=== PATIENT | male | born 1965 | race Caucasian/White ===

== ENCOUNTER 2017-09-02 19:37 | Emergency (ER) | payer MEDICAID, SELFPAY ==
[2017-09-02 19:42] VITALS: BP 170/103; PULSE 101; RESP 18; TEMP 36.6; O2SAT 98; BMI 21.2
--- NOTE | 2017-09-02 19:53 | CT_ITS ---
CT abdomen pelvis wo con CLINICAL INDICATION: Right flank pain with nausea ORDERING PHYSICIAN: Ole Hughes MD PATIENT AGE: 52 years COMPARISON: None TECHNIQUE: Axial images obtained with sagittal and coronal reformats. PROCEDURE: Oral Contrast: None IV Contrast: None . FINDINGS: Lung bases are clear.. No focal liver lesion. The gallbladder is distended with multiple gallstones. The gallbladder measures 9.7 x 4 cm. There are 2 small calcific densities at the distal aspect of the sphincter of Oddi possibly entering the lumen of the descending duodenum consistent with choledocholithiasis. This may be confirmed with MRI if clinically warranted. No obvious ductal dilatation. Stomach is somewhat distended with food and/or secretions area spleen, adrenal glands, and pancreas are unremarkable. No obstructing renal or ureteral calculi. No intestinal obstruction or free air. No evidence of appendicitis or diverticulitis. No pelvic mass or abnormal fluid collection. No urinary bladder stones. No acute bony anomalies. IMPRESSION: 1. Cholelithiasis. 2. Suspected choledocholithiasis. 3. Gastric distention
[2017-09-02 20:09] LABS: Basophils % 0.4 % (0.1-2.0); Eosinophils # 0.1 K/mm3 (0.0-0.4); Eosinophils % 0.5 % (0.1-12.0); Hematocrit 49.2 % (42.0-52.0); Hemoglobin 16.2 g/dL (14.1-18.0); Lymphocytes # 1.2 K/mm3 (0.7-4.5); Lymphocytes % 11.6 K/mm3 (10-50); Mean Corpuscular Volume 91.1 fl (80-94); Mean Platelet Volume 9.6 fl (7.4-10.4); Monocytes # 0.4 K/mm3 (0.1-1.0); Monocytes % 4.3 % (1.7-9.3); Neutrophils # 8.5 K/mm3 (1.8-7.8); Neutrophils % 83.2 % (37.0-80.0); Platelet Count 161 K/mm3 (142-424); Red Cell Distribution Width 12.9 % (11.5-17.5); White Blood Count 10.2 K/mm3 (4.8-10.8)
[2017-09-02 20:39] VITALS: BP 158/84; PULSE 63; RESP 18; TEMP 36.6; O2SAT 98
[2017-09-02 20:40] LABS: Microscopic, Urine URINE MICROSCOPIC (MICROSCOPIC)
[2017-09-02 20:42] LABS: Appearance,Urine CLEAR (Clear); Blood, Urine Negative (Negative); Color,Urine YELLOW (Yellow); Glucose,Urine (UA) Negative (Negative); Ketones,Urine Negative (Negative); Leukocyte Esterase,Urine Negative (Negative); Nitrate,Urine Negative (Negative); Protein,Urine TRACE (Negative); Specific Gravity, Urine >= 1.030 (1.005-1.030)
[2017-09-02 20:47] LABS: Alanine Aminotransferase 159 U/L (12-78); Albumin Level 3.9 gm/dL (3.4-5.0); Anion Gap 12.9 mEq/L (5-15); Aspartate Amino Transferase 191 U/L (15-37); Bilirubin,Total 1.6 mg/dL (0.2-1.0); Blood Urea Nitrogen 14 mg/dL (7-18); Calcium 9.3 mg/dL (8.5-10.1); Carbon Dioxide 29 mmol/L (21.0-32.0); Chloride 102 mmol/L (98-107); Creatinine Clearance Estimated 78 mL/min (0-300); Creatinine,Serum 1.24 mg/dL (0.70-1.30); Estimated Glomerular Filt Rate 61 ml/min (>60); GFR (African American) 74 ML/MIN (>60); Globulin 4.1 gm/dl (1.3-3.2); Glucose 136 mg/dL (74-106); Potassium 3.9 mmoL/L (3.5-5.1); Sodium 140 mmol/L (136-145)
[2017-09-02 20:48] LABS: Alkaline Phosphatase 130 U/L (46-116); Amylase 276 U/L (25-125); Lipase 218 u/L (73-393)
[2017-09-02 20:56] LABS: Bilirubin,Urine 2+ (Negative)
--- NOTE | 2017-09-02 21:29 | HMH.EDGENADL ---
ED Disposition Clinical Impression: Cholelithiasis Qualifiers: Cholelithiasis location: gallbladder and bile duct Cholecystitis presence: without cholecystitis Biliary obstruction: without biliary obstruction Qualified Code(s): K80.70 - Calculus of gallbladder and bile duct without cholecystitis without obstruction Disposition: Home, Self-Care Condition on Discharge: Good Instructions: DI for Gallstones Additional Instructions: fluids and see dr ding tuesday am after blood draw Prescriptions: Ondansetron HCl [Zofran 4mg Tab] 4 mg PO QID #20 tab - Critical Care Critical Care Time: No Attestation: On 09/02/17, the high probability of a clinically significant, sudden or life threatening deterioration of the following system(s) required my full and direct attention, intervention and personal management. The time I documented below is in addition to time spent performing reported procedures but includes the following listed in this critical care notation. Medical Decision Making - Medical Records Medical records reviewed: Yes: I reviewed the patient's medical records. Vital Signs: 09/02/17 19:42 09/02/17 20:39 Temperature 97.9 F 97.9 F Temperature Source Oral Oral Pulse Rate [Right Radial] 101 H 63 Respiratory Rate 18 18 Blood Pressure [Right Arm] 170/103 158/84 Blood Pressure Mean [Right Arm] 125 108 Blood Pressure Source [Right Arm] Automatic Cuff Automatic Cuff Blood Pressure Position [Right Arm] Sitting Sitting 02 Sat by Pulse Oximetry 98 98 Oxygen Delivery Method Room Air Room Air - Lab Data Lab results reviewed: Yes: I reviewed the patient's lab results. Lab Results 09/02/17 20:00: WBC 10.2, RBC 5.40, Hgb 16.2, Hct 49.2, MCV 91.1, MCH 30.0, MCHC 33.0, RDW 12.9, Plt Count 161, MPV 9.6, Neut % (Auto) 83.2 H, Lymph % (Auto) 11.6, [place] % (Auto) 4.3, Eos % (Auto) 0.5, Baso % (Auto) 0.4, Neut # (Auto) 8.5 H, Lymph # (Auto) 1.2, [place] # (Auto) 0.4, Eos # (Auto) 0.1, Baso # (Auto) 0.0 09/02/17 20:00: Sodium 140, Potassium 3.9, Chloride 102, Carbon Dioxide 29, Anion Gap 12.9, BUN 14, Creatinine 1.24, Estimated Creat Clear 78, Estimated GFR 61, Est GFR ( Amer) 74, Glucose 136 H, Calcium 9.3, Total Bilirubin 1.6 H, AST 191 H, ALT 159 H, Alkaline Phosphatase 130 H, Total Protein 8.0, Albumin 3.9, Globulin 4.1 H, Albumin/Globulin Ratio 1.0 L, Amylase 276 H, Lipase 218 09/02/17 20:25: Urine Color Yellow, Urine Appearance Clear, Urine pH 6.0, Ur Specific [place] >= 1.030, Urine Protein Trace, Urine Glucose (UA) Negative, Urine Ketones Negative, Urine Blood Negative, Urine Nitrate Negative, Urine Bilirubin 2+ A, Urine Urobilinogen 2.0, Ur Leukocyte Esterase Negative Result diagrams: 09/02/17 20:00 09/02/17 20:00 Orders (Tests/Meds): ED MEDICATIONS Discontinued Medications Generic Name Dose Route Start Last Admin Trade Name Freq PRN Reason Stop Dose Admin Sodium Chloride 500 mls @ 999 mls/hr 09/02/17 20:00 09/02/17 20:05 Sod Chlor 0.9% 1000ml Bag IV 09/02/17 20:30 999 mls/hr .Q31M BRITNEY Administration Ketorolac Tromethamine 30 mg 09/02/17 19:58 09/02/17 20:04 Toradol 30mg/Ml Vial IV 09/02/17 19:59 30 mg ONCE ONE Administration Ondansetron HCl 4 mg 09/02/17 19:59 09/02/17 20:04 Zofran 4mg/2ml Vial IV 09/02/17 20:00 4 mg ONCE ONE Administration ORDERS Category Date Time Status CT abdomen pelvis wo con Stat Cat Scan 09/02/17 19:53 Taken Urinalysis and Microscopic Stat Lab 09/02/17 20:25 Results - CT Data CT Scan: Abdomen, Pelvis Time Received: 21:[address] Reviewed: Yes: I have viewed the radiologist's interpretation Preliminary Findings: Abnormal (see report) - Physician Consults Physician Consulted: toña Reason -: Pt condition - Isaiah Inquiry Pt receiving controlled substance: No General Adult HPI - General Chief complaint: PAIN Stated complaint: pain in right side Time Seen by Provider: 09/02/17 20:30 Mode of Arrival: Ambulatory
[2017-09-02 21:31] LABS: Bacteria,Urine Trace /lpf; Mucus,Urine 2+ /lpf; RBC,Urine Occasional #/hpf (0-3); Squamous Epithelial Cell,Urine Occasional #/hpf (0-5); Uric Acid Crystals,Urine 3+ /lpf; WBC,Urine Occasional #/hpf (0-3)
--- NOTE | 2017-09-02 21:33 | PC.NURSE ---
dr wheeler paged per dr thomas request.
--- NOTE | 2017-09-02 21:36 | ED_ITS ---
ED Disposition Clinical Impression: Cholelithiasis Qualifiers: Cholelithiasis location: gallbladder and bile duct Cholecystitis presence: without cholecystitis Biliary obstruction: without biliary obstruction Qualified Code(s): K80.70 - Calculus of gallbladder and bile duct without cholecystitis without obstruction Disposition: Home, Self-Care Condition on Discharge: Good Instructions: DI for Gallstones Additional Instructions: fluids and see dr ding tuesday am after blood draw Prescriptions: Ondansetron HCl [Zofran 4mg Tab] 4 mg PO QID #20 tab - Critical Care Critical Care Time: No Attestation: On 09/02/17, the high probability of a clinically significant, sudden or life threatening deterioration of the following system(s) required my full and direct attention, intervention and personal management. The time I documented below is in addition to time spent performing reported procedures but includes the following listed in this critical care notation. Medical Decision Making - Medical Records Medical records reviewed: Yes: I reviewed the patient's medical records. Vital Signs: 09/02/17 19:42 09/02/17 20:39 Temperature 97.9 F 97.9 F Temperature Source Oral Oral Pulse Rate [Right Radial] 101 H 63 Respiratory Rate 18 18 Blood Pressure [Right Arm] 170/103 158/84 Blood Pressure Mean [Right Arm] 125 108 Blood Pressure Source [Right Arm] Automatic Cuff Automatic Cuff Blood Pressure Position [Right Arm] Sitting Sitting 02 Sat by Pulse Oximetry 98 98 Oxygen Delivery Method Room Air Room Air - Lab Data Lab results reviewed: Yes: I reviewed the patient's lab results. Lab Results 09/02/17 20:00: WBC 10.2, RBC 5.40, Hgb 16.2, Hct 49.2, MCV 91.1, MCH 30.0, MCHC 33.0, RDW 12.9, Plt Count 161, MPV 9.6, Neut % (Auto) 83.2 H, Lymph % (Auto ) 11.6, [place] % (Auto) 4.3, Eos % (Auto) 0.5, Baso % (Auto) 0.4, Neut # (Auto) 8.5 H, Lymph # (Auto) 1.2, [place] # (Auto) 0.4, Eos # (Auto) 0.1, Baso # (Auto) 0.0 09/02/17 20:00: Sodium 140, Potassium 3.9, Chloride 102, Carbon Dioxide 29, Anion Gap 12.9, BUN 14, Creatinine 1.24, Estimated Creat Clear 78, Estimated GFR 61, Est GFR ( Amer) 74, Glucose 136 H, Calcium 9.3, Total Bilirubin 1.6 H, AST 191 H, ALT 159 H, Alkaline Phosphatase 130 H, Total Protein 8.0, Albumin 3.9, Globulin 4.1 H, Albumin/Globulin Ratio 1.0 L, Amylase 276 H, Lipase 218 09/02/17 20:25: Urine Color Yellow, Urine Appearance Clear, Urine pH 6.0, Ur Specific [place] >= 1.030, Urine Protein Trace, Urine Glucose (UA) Negative, Urine Ketones Negative, Urine Blood Negative, Urine Nitrate Negative, Urine Bilirubin 2+ A, Urine Urobilinogen 2.0, Ur Leukocyte Esterase Negative Result diagrams: 09/02/17 20:00 09/02/17 20:00 Orders (Tests/Meds): ED MEDICATIONS Discontinued Medications Generic Name Dose Route Start Last Admin Trade Name Freq PRN Reason Stop Dose Admin Sodium Chloride 500 mls @ 999 mls/hr 09/02/17 20:00 09/02/17 20:05 Sod Chlor 0.9% 1000ml Bag IV 09/02/17 20:30 999 mls/hr .Q31M BRITNEY Administration Ketorolac Tromethamine 30 mg 09/02/17 19:58 09/02/17 20:04 Toradol 30mg/Ml Vial IV 09/02/17 19:59 30 mg ONCE ONE Administration Ondansetron HCl 4 mg 09/02/17 19:59 09/02/17 20:04 Zofran 4mg/2ml Vial IV 09/02/17 20:00 4 mg ONCE ONE Administration ORDERS Category Date Time Status
--- NOTE | 2017-09-02 21:36 | PC.NURSE ---
dr thomas speaking with dr ding
[2017-09-02 21:47] VITALS: PULSE 140; RESP 22; TEMP 37.9; O2SAT 99
[2017-09-02 22:14] VITALS: BP 150/82; PULSE 65; RESP 18; TEMP 36.7; O2SAT 99
== END 2017-09-02 22:14 | disposition home or self-care (01) ==
PROVIDERS: Emergency Provider General Practice
DX: K80.70 Calculus of gallbladder and bile duct without cholecystitis without obstruction (principal)
CPT/HCPCS: 74176; 80053; 81001; 82150; 83690; 85025; 96365; 96374; 96375; 99283; J2405

== ENCOUNTER → 2017-09-05 08:05 | Outpatient (CLI) | payer MEDICAID, SELFPAY ==
[2017-09-05 08:22] LABS: Basophils % 0.5 % (0.1-2.0); Eosinophils # 0.3 K/mm3 (0.0-0.4); Eosinophils % 4.1 % (0.1-12.0); Hematocrit 49.9 % (42.0-52.0); Hemoglobin 15.9 g/dL (14.1-18.0); Lymphocytes # 1.6 K/mm3 (0.7-4.5); Lymphocytes % 22.4 K/mm3 (10-50); Mean Corpuscular HGB Conc 31.8 g/dL (31.8-35.4); Mean Corpuscular Hemoglobin 30.1 pg (27.0-31.2); Mean Corpuscular Volume 94.7 fl (80-94); Monocytes # 0.4 K/mm3 (0.1-1.0); Monocytes % 5.6 % (1.7-9.3); Neutrophils # 4.9 K/mm3 (1.8-7.8); Neutrophils % 67.4 % (37.0-80.0); Platelet Count 169 K/mm3 (142-424); Red Blood Count 5.26 M/mm3 (4.60-6.20); Red Cell Distribution Width 12.9 % (11.5-17.5); White Blood Count 7.2 K/mm3 (4.8-10.8)
[2017-09-05 09:31] LABS: Alanine Aminotransferase 135 U/L (12-78); Albumin Level 3.5 gm/dL (3.4-5.0); Alkaline Phosphatase 136 U/L (46-116); Amylase 268 U/L (25-125); Anion Gap 2.1 mEq/L (5-15); Aspartate Amino Transferase 55 U/L (15-37); Bilirubin,Total 0.8 mg/dL (0.2-1.0); Blood Urea Nitrogen 11 mg/dL (7-18); Carbon Dioxide 30 mmol/L (21.0-32.0); Chloride 103 mmol/L (98-107); Creatinine,Serum 1.31 mg/dL (0.70-1.30); Estimated Glomerular Filt Rate 57 ml/min (>60); GFR (African American) 70 ML/MIN (>60); Globulin 3.4 gm/dl (1.3-3.2); Glucose 112 mg/dL (74-106); Lipase 187 u/L (73-393); Potassium 4.1 mmoL/L (3.5-5.1); Sodium 131 mmol/L (136-145); Total Protein,Serum 6.9 gm/dL (6.4-8.2)
== END ==
PROVIDERS: PCP Emergency Medicine; Visit Provider Emergency Medicine
DX: K80.80 Other cholelithiasis without obstruction (principal)
CPT/HCPCS: 36415; 80053; 82150; 83690; 85025; 93005

== ENCOUNTER 2017-09-06 09:07 | Day surgery (SDC) | payer MEDICAID, SELFPAY ==
[2017-09-05 16:08] VITALS: BMI 21.2
[2017-09-06] VITALS (13 sets, daily range): BP systolic 130–157; BP diastolic 78–92; PULSE 62–78; RESP 16–20; TEMP 36.3–43; O2SAT 95–98
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
[2017-09-06 10:29] LABS: Alanine Aminotransferase 118 U/L (12-78); Albumin Level 3.6 gm/dL (3.4-5.0); Alkaline Phosphatase 120 U/L (46-116); Amylase 343 U/L (25-125); Bilirubin,Direct 0.2 mg/dL (0.0-0.2); Lipase 164 u/L (73-393); Total Protein,Serum 7.7 gm/dL (6.4-8.2)
[2017-09-06 10:31] LABS: Aspartate Amino Transferase 51 U/L (15-37)
--- NOTE | 2017-09-06 12:36 | FL_ITS ---
FL fluoroscopy <1hr CLINICAL INDICATION: Cholelithiasis distended gallbladder on preoperative exam ITS.REASON: CHOLANGIOGRAM ORDERING PHYSICIAN: Bal Melendez MD PATIENT AGE: 52 years Fluoroscopy time: 54 seconds COMPARISON: None FINDINGS: Selected images are obtained from the procedure showing contrast injected into the cystic duct. There is a fairly long cystic duct. No filling defects are evident indicate retained ductal stones. There is good flow of contrast into the duodenum. No strictures. IMPRESSION: No evidence of retained common duct stones
--- NOTE | 2017-09-06 13:05 | HMH.OPNOTE ---
Date of procedure: 09/06/17 Pre-op Diagnosis:: Chronic calculus cholecystitis Abnormal liver function tests Post-op Diagnosis:: Same Procedure performed:: Laparoscopic cholecystectomy with intraoperative cholangiogram Surgeon:: Bal Melendez MD Senior Engineering Team Leader(s):: Dominic Zavaleta IT INSTRUCTOR:: Kai Srinivasan Anesthesia: GETA Estimated blood loss (mL): 25 Operative findings:: Severe fat stranding around the entire gallbladder Flow into small bowel noted on intraoperative cholangiogram Operative note:: After informed consent was obtained, the patient was taken to the operating room and placed in the supine position. General anesthesia was induced and the abdomen was prepped and draped in a sterile fashion. After infiltration with local anesthetic an infraumbilical incision was made. A Veress needle was placed in position. The abdomen was insufflated. A 5 mm optical trocar was placed in position. Under direct visualization, a 12 mm trocar was placed in the subxiphoid position and 2 additional 5 mm trocars were placed in the right upper quadrant. Severe pericholecystic fat stranding noted. Dissection was very difficult as the gallbladder was carefully elevated up and over the liver margin and freed from surrounding adherent omentum. Combination of blunt dissection and harmonic hiren was utilized to remove the gallbladder from surrounding tissue. The tissue around the cystic duct was carefully dissected. A clip was placed at the infundibulum and a partial otomy was repleted on the duct. The cholangiogram catheter was entered through a separate right quadrant stab incision and placed in position. The catheter was secured with clip. Intraoperative cholangiogram revealed flow into the small bowel. 3 clips were placed proximally and the duct was transected with harmonic hiren. Harmonic hiren were then utilized to dissect the gallbladder away from the liver margin with careful attention to the control of the cystic artery. The gallbladder was placed in a retrieval bag and removed through the subxiphoid trocar site. The right upper quadrant was thoroughly irrigated. No active bleeding or bile leak was noted. Fascia at the subxiphoid trocar site was reapproximated utilizing 0 Ethibond after all trocars were removed. All wounds were irrigated and skin was closed with 4-0 Monocryl in a subcuticular fashion. Steri-Strips were applied. The patient's anesthetic agents were reversed and extubation was completed prior to transfer to recovery in stable condition. Condition: stable Disposition: PACU Specimens:: Gallbladder and contents Complications:: No immediate
--- NOTE | 2017-09-06 13:13 | P.PN_ITS ---
[facility] Anesthesia Record Part I Intake, IV Amount: 1,000 Estimated blood loss (mL): 10 Urine output (mL): 10 Blood Products used (#): none Blood Pressure: 155/83 SaO2: 98 Pulse Rate: 64 Respiratory Rate: 18 Temperature: 97.3 F Patient is:: Awake, Stable Stable to PACU at:: 13:11
--- NOTE | 2017-09-06 13:13 | HMH.ANESII ---
[facility] Anesthesia Record Part II Discharge Time: 13:41 Destination: Surgical Day Care (OP Surgery) PACU nurse assessment reviewed?: Yes Patient Condition:: Fair Anesthesia Complications:: None
--- NOTE | 2017-09-06 15:32 | PC.NURSE ---
1315-pt voided per urinal, 200ml's of clear yellow urine
--- NOTE | 2017-09-06 15:38 | PC.NURSE ---
1341-Pt eating ice chips w/out difficulty. Pt intermittently shivering, applied warm blankets for comfort.
--- NOTE | 2017-09-06 15:41 | PC.NURSE ---
1349-detailed report called to SADA Chiang 1352-Pt transported to post op via stretcher w/rails up and left in care of SADA Chiang w/bed locked in lowest position. VSS. Pt stable.
== END 2017-09-06 14:22 | disposition home or self-care (01) ==
LOC: OR 09:11
PROVIDERS: PCP Family Medicine; Visit Provider Surgery
PROC: (CPT 47605; principal; 2017-09-06 10:45)
DX: K80.10 Calculus of gallbladder with chronic cholecystitis without obstruction (principal); K82.8 Other specified diseases of gallbladder
CPT/HCPCS: 47605; 76000; 80076; 82150; 83690; 96374; J0131; J2405; J2710

== ENCOUNTER 2018-10-30 12:11 | Observation (INO) ==
[2018-10-30 12:37] LABS: Basophils % 0.4 % (0.1-2.0); Eosinophils % 0.1 % (0.1-12.0); Hematocrit 47.5 % (42.0-52.0); Hemoglobin 16.4 g/dL (14.1-18.0); Lymphocytes % 12.3 % (10-50); Mean Corpuscular HGB Conc 34.5 g/dL (31.8-35.4); Mean Corpuscular Hemoglobin 32.2 pg (27.0-31.2); Mean Corpuscular Volume 93.3 fl (80-94); Mean Platelet Volume 10.3 fl (7.4-10.4); Monocytes # 0.5 K/mm3 (0.1-1.0); Monocytes % 5.7 % (1.7-9.3); Neutrophils # 6.7 K/mm3 (1.8-7.8); Neutrophils % 81.5 % (37.0-80.0); Platelet Count 125 K/mm3 (142-424); Red Blood Count 5.09 M/mm3 (4.60-6.20); Red Cell Distribution Width 14.2 % (11.5-17.5); White Blood Count 8.2 K/mm3 (4.8-10.8)
[2018-10-30 12:45] LABS: Anion Gap 26.7 mEq/L (5-15); Calcium 8.9 mg/dL (8.5-10.1)
[2018-10-30 12:48] LABS: Potassium 2.7 mmoL/L (3.5-5.1)
--- NOTE | 2018-10-30 12:55 | Emergency Department Note ---
ED Disposition Clinical Impression: Syncopal episodes, Alcohol abuse, Hypokalemia, Fever, Microscopic hematuria Disposition: Admitted as Observation Condition on Discharge: Fair Referrals: Provider,MD Gilbert [Referring] - Time of Disposition: 17:12 - Critical Care Critical Care Time: No Attestation: On 10/30/18, the high probability of a clinically significant, sudden or life threatening deterioration of the following system(s) required my full and direct attention, intervention and personal management. The time I documented below is in addition to time spent performing reported procedures but includes the following listed in this critical care notation. Medical Decision Making - Medical Records Medical records reviewed: Yes: I reviewed the patient's medical records. - Isaiah Inquiry Pt receiving controlled substance: No Isaiah was queried for this patient: No Vital Signs: 10/30/18 12:17 10/30/18 12:53 10/30/18 14:04 Temperature 99.9 F H Temperature Source Oral Pulse Rate [Right] 89 92 H 72 Respiratory Rate 20 16 20 Blood Pressure [Right Arm] 93/49 L 110/67 144/77 H Blood Pressure Mean [Right Arm] 63 81 99 Blood Pressure Source [Right Arm] Automatic Cuff Automatic Cuff Automatic Cuff Blood Pressure Position [Right Arm] Sitting Sitting Sitting 02 Sat by Pulse Oximetry 92 L 94 L 98 Oxygen Delivery Method Nasal Cannula Room Air Nasal Cannula 10/30/18 14:53 10/30/18 15:00 10/30/18 15:49 Temperature 100.2 F H Temperature Source Oral Pulse Rate [Right] 71 72 69 Respiratory Rate 18 20 16 Blood Pressure [Right Arm] 147/89 H 132/81 150/74 H Blood Pressure Mean [Right Arm] 108 98 99 Blood Pressure Source [Right Arm] Automatic Cuff Automatic Cuff Automatic Cuff Blood Pressure Position [Right Arm] Sitting Sitting Sitting 02 Sat by Pulse Oximetry 97 95 97 Oxygen Delivery Method Room Air Room Air 10/30/18 16:18 10/30/18 16:53 10/30/18 17:07 Temperature 98.6 F 98.6 F Temperature Source Oral Oral Pulse Rate [Right] 74 79 77 Respiratory Rate 18 20 20 Blood Pressure [Right Arm] 170/86 H 132/82 127/82 Blood Pressure Mean [Right Arm] 114 98 97 Blood Pressure Source [Right Arm] Automatic Cuff Automatic Cuff Automatic Cuff Blood Pressure Position [Right Arm] Supine Sitting Sitting 02 Sat by Pulse Oximetry 97 94 L 20 L Oxygen Delivery Method Room Air Room Air - Lab Data Lab results reviewed: Yes: I reviewed the patient's lab results. Lab Results 10/30/18 12:25: WBC 8.2, RBC 5.09, Hgb 16.4, Hct 47.5, MCV 93.3, MCH 32.2 H, MCHC 34.5, RDW 14.2, Plt Count 125 L, MPV 10.3, Neut % (Auto) 81.5 H, Lymph % (Auto) 12.3, [place] % (Auto) 5.7, Eos % (Auto) 0.1, Baso % (Auto) 0.4, Neut # (Auto) 6.7, Lymph # (Auto) 1.0, [place] # (Auto) 0.5, Eos # (Auto) 0.0, Baso # (Auto) 0.0 10/30/18 12:25: Sodium 135 L, Potassium 2.7 L*, Chloride 94 L, Carbon Dioxide 17 L, Anion Gap 26.7 H, BUN 17, Creatinine 2.07 H, Estimated Creat Clear 48, Estimated GFR 34 L, Est GFR ( Amer) 41 L, Glucose 124 H, Calcium 8.9 10/30/18 12:25: Magnesium 1.8 10/30/18 12:25: Troponin I < 0.02, Plasma/Serum Alcohol 0 10/30/18 12:30: Lactate 3.0 H 10/30/18 12:30: Influenza Type A Ag Negative, Influenza Type B Ag Negative 10/30/18 15:50: Urine Color Yellow, Urine Appearance Clear, Urine pH 6.5, Ur Specific [place] >= 1.030, Urine Protein 2+, Urine Glucose (UA) Negative, Urine Ketones 1+, Urine Blood 1+, Urine Nitrate Negative, Urine Bilirubin 2+ A, Urine Urobilinogen 0.2, Ur Leukocyte Esterase Negative, Urine RBC 20-50, Urine WBC Occasional, Amorphous Sediment 1+, Urine Bacteria 1+ 10/30/18 15:50: Urine Opiates Screen Negative, Urine Methadone Screen Negative, Ur Barbituates Screen Negative, Ur Phencyclidine Scrn Negative, Ur Amphetamines Screen Negative, U Benzodiazepines Scrn Positive H, Urine Cocaine Screen Negative, U Marijuana (THC) Screen Negative Result diagrams: 10/30/18 12:25 10/30/18 12:25 Orders (Tests/Meds): ED MEDICATIONS Discontinued Medications Generic Name Dose Route Start Last Admin Trade Name Sivan PRN Reason Stop Dose Admin Acetaminophen 650 mg 10/30/18 15:11 10/30/18 15:14 Acetaminophen 325mg Tab PO 10/30/18 15:12 650 mg ONCE ONE Administration Potassium Chloride/Water 100 mls @ 50 mls/hr 10/30/18 13:11 10/30/18 13:36 Potassium Chloride 20meq/100ml Ivpb IV 10/30/18 15:10 50 mls/hr ONCE ONE Administration Ceftriaxone Sodium 1 gm/ 50 mls @ 100 mls/hr 10/30/18 16:45 10/30/18 16:51 Sodium Chloride IV 10/30/18 17:14 100 mls/hr Q24H ONE Administration Protocol Lorazepam 2 mg 10/30/18 15:20 10/30/18 15:46 Ativan 2mg/Ml Vial IV 10/30/18 15:21 2 mg ONCE ONE Administration Potassium Chloride 20 meq 10/30/18 13:12 10/30/18 13:36 Klor-Con 20meq Tablet PO 10/30/18 13:13 20 meq ONCE ONE Administration ORDERS Category Date Time Status Lactic Acid Follow Up (RFLX 1) Stat Lab 10/30/18 17:02 Received Blood Culture Stat Micro 10/30/18 12:30 Received Urine Culture Stat Micro 10/30/18 15:50 Received ECG Request by /Anshu Stat Y 10/30/18 12:29 Ordered Dizzy HPI - General Chief Complaint: Altered Mental Status Stated Complaint: syncope Time Seen by Provider: 10/30/18 13:13 Mode of Arrival: EMS Source of Information: Patient Limitations: No Limitations Description of Symptoms (Recalled from ER Triage Doc. by RN): [facility] his [facility] when he had what was reported by penitentiary staff as a syncopal episode. penitentiary staff reports to EMS that he may have been exhibiting postictal bahavior after syncopal episode but that no seizure activity was directly observed. Thay also report that pt may have st umbled during previous visits to facility. Pt axox4. strok scale negative. - History of Present Illness HPI Narrative: Brother confides that patient is a heavy drinker, daily though patient denies it. - Related Data Previous Rx's Medication Instructions Recorded Ondansetron HCl [Zofran 4mg Tab] 4 mg PO QID #20 tab 09/02/17 Allergies Allergy/AdvReac Type Severity Reaction Status Date / Time No Known Allergies Allergy Verified 09/20/17 13:35 [facility] History - Hepatitis A Screen Drug use history?: No High risk sexual behaviors?: No History of sexually transmitted infection?: No Currently employed?: No Childcare worker?: No Do you have indoor plumbing?: Yes Do you have electricity?: Yes Attestation statement:: This patient has been screened for Hepatitis A risk factors. I have reviewed the patient's past medical history: Yes Medical History: Denies:: Cancer, Diabetes Mellitus Type 1, Diabetes Mellitus Type 2, Internal Pacemaker, MRSA, Seizures Other Medical History: Denies: Blood Transfusion Reaction Other Surgeries: Yes: No Previous Surgery, Other. No: Pacemaker Amputation: No Fractures: No - Social History Educational Level: Completed High School Smoking Status: Never smoker Alcohol Intake: never Alcohol Intake Frequency:: holidays/special occasions only Occupational Status: unemployed Housing: house Household Members: family - Psychiatric History Expresses thoughts of harming self/others: None Suicide Plan Description: No Plan Family Hx:: Hyperlipidemia, Hypertension, Stroke ROS Obtained: Yes All systems reviewed & no additional complaints - Constitutional Constitutional: Denies chills, Denies fever(s), Denies headache(s) - Eyes Eyes: Reports change in vision - Cardiovascular Cardiovascular: Reports system reviewed and no additional complaints, except as docu, Denies chest pain, Denies chest pain at rest, Denies diaphoresis, Denies dyspnea - Respiratory Respiratory: No chest congestion, No cough, No dyspnea, No coughing up blood - Gastrointestinal Gastrointestingal: Denies: abdominal pain, diarrhea, nausea, vomiting - Musculoskeletal Musculoskeletal: Denies back pain, Denies muscle cramps, Reports muscle w eakness, Denies neck pain - Integumentary/Breasts Skin/Breast: Denies rash, Denies skin pain - Neurologic Neurologic: Reports syncope, Reports other (preceded by vision changes) - Hematologic/Lymphatic Henatologic/Lymphatic: Denies easy bleeding, Denies easy bruising - Allergic/Immunologic Allergic/Immunologic: Reports system reviewed and no additional complaints, except as docu Physical Exam - General General appearance: alert, in no apparent distress - Head Head exam: atraumatic, normocephalic, normal inspection - Eye Eye exam: Present: normal appearance, PERRL, EOMI - ENT ENT exam: Present: normal exam, normal oropharynx, mucous membranes moist, TM's normal bilaterally, normal external ear exam - Neck Neck exam: Present: normal inspection, full ROM, trachea midline. Absent: meningismus, lymphadenopathy - Chest Chest inspection: Present: normal inspection, symmetric chest wall rise. Absent: tenderness - Respiratory Respiratory exam: Present: normal lung sounds bilaterally - Cardiovascular Cardiovascular exam: Present: regular rate, normal rhythm. Absent: JVD - Abdominal Exam Abdominal exam: Present: soft, normal bowel sounds. Absent: distention, tenderness, guarding - Extremities Exam Extremities exam: Present: normal inspection, full ROM, normal capillary refill. Absent: calf tenderness - Neurological Exam Neurological exam: Present: alert, oriented X3 - Psychiatric Psychiatric exam: Present: other (odd affect, ? lifelong ETOH) - Skin Skin exam: Present: warm - Lymphatic Lymphatic Findings: no adenopathy
[2018-10-30 15:58] LABS: Microscopic, Urine URINE MICROSCOPIC (MICROSCOPIC)
[2018-10-30 15:59] LABS: Appearance,Urine CLEAR (Clear); Blood, Urine 1+ (Negative); Color,Urine YELLOW (Yellow); Glucose,Urine (UA) Negative (Negative); Ketones,Urine 1+ (Negative); Leukocyte Esterase,Urine Negative (Negative); PH,Urine 6.5 (5.0-8.5); Protein,Urine 2+ (Negative); Specific Gravity, Urine >= 1.030 (1.005-1.030); Urobilinogen,Urine 0.2 EU/dl (0.2)
[2018-10-30 16:13] LABS: Bilirubin,Urine 2+ (Negative)
[2018-10-30 16:17] LABS: Amorphous Sediment,Urine 1+ /lpf; Bacteria,Urine 1+ /lpf; RBC,Urine 20-50 #/hpf (0-3); WBC,Urine Occasional #/hpf (0-3)
[2018-10-30 16:55] LABS: Ethyl Alcohol 0 mg/dL (0-99)
[2018-10-30 17:00] LABS: Amphetamine/Metha Screen,Urine Negative ng/mL (<1000); Barbiturates Screen,Urine Negative ng/mL (<200); Benzodiazepines Screen,Urine Positive ng/mL (<200); Cannabinoid Screen,Urine Negative ng/mL (<50); Cocaine Screen,Urine Negative ng/mL (<300); Methadone Screen,Urine Negative ng/mL (<300); Opiate Screen,Urine Negative ng/mL (<300); Phencyclidine Screen,Urine Negative ng/mL (<25)
--- NOTE | 2018-10-30 18:14 | History & Physical Report ---
*Admission Date: 10/30/18 *Chief complaint: Syncope/hypokalemia *History of present illness: 53-year-old white male with history of recurrent alcoholism and cholecystectomy who presented to the hospital by EMS after having a syncopal episode that was witnessed by nurses at a local alf. He was visiting his father who has been a resident of this alf over the past week or so because of functional decline issues. Patient reports that he had a sensation of fuzzy vision and that he was watching television with his father but when he would look away from the television he could still see the television even on a wall where there was no television mounted. He then does not remember fainting but remembers the nurses standing over him. The nurses reported that he had some tonic-clonic jerking during the very brief episode of syncope. Brought to the emergency department where he was found to have low potassium, no other significant lab abnormalities. CT of head was questionable for ischemic area, no evidence of hemorrhage. Admitted to floor. Patient has a long history of alcoholism that was reported to the ER doctor by his brother. Patient denied alcohol use to the ER doctor. [facility] History I have reviewed the patient's past medical history: Yes Medical History: Reports:: Gall Bladder Disease Denies:: Cancer, Diabetes Mellitus Type 1, Diabetes Mellitus Type 2, Internal Pacemaker, MRSA, Seizures *Have you ever received a pneumonia vaccine?: No *Have you received a flu vaccine this season?: No Other Medical History: Denies: Blood Transfusion Reaction Other Surgeries: Yes: Cholecystectomy, Other. No: Pacemaker Amputation: No Fractures: No - *Social History Educational Level: Completed High School Smoking Status: Never smoker Alcohol Intake: never Alcohol Intake Frequency:: holidays/special occasions only (Brother reports a history of heavy alcohol use) *Occupational Status:: unemployed Housing: house Household Members: family *Travel in the last 8 weeks: None - Psychiatric History Expresses thoughts of harming self/others: None Suicide Plan Description: No Plan Family Hx:: Hyperlipidemia, Hypertension, Stroke Review of Systems - Review of Systems Review of systems:: pertinent systems reviewed and negative unless documented below Patient reports that he is hungry. Reports feeling weak but denies any specific pains. Denies cardiac palpitations, recent chest pain or other episodes of syncope. Denies postictal confusion. Denies history of seizures. Denies abdominal pain, reports that he had diarrhea yesterday, denies vomiting, but reports recent chest congestion and some retching of mucus. - *Neurologic Reports fainting, Reports other (preceded by vision changes), Denies headache(s) Meds Home Medications Medication Instructions Recorded Confirmed Type Ondansetron HCl [Zofran 4mg Tab] 4 mg PO QID #20 tab 09/02/17 09/06/17 Rx Allergies Allergy/AdvReac Type Severity Reaction Status Date / Time No Known Allergies Allergy Verified 09/20/17 13:35 Exam Vital signs and Labs for Last 24 Hours: Temp Pulse Resp BP Pulse Ox 98.5 F 74 20 116/73 20 L 10/30/18 17:45 10/30/18 17:45 10/30/18 17:45 10/30/18 17:45 10/30/18 17:07 Laboratory Results - last 24 hr 10/30/18 12:25: WBC 8.2, RBC 5.09, Hgb 16.4, Hct 47.5, MCV 93.3, MCH 32.2 H, MCHC 34.5, RDW 14.2, Plt Count 125 L, MPV 10.3, Neut % (Auto) 81.5 H, Lymph % (Auto) 12.3, [place] % (Auto) 5.7, Eos % (Auto) 0.1, Baso % (Auto) 0.4, Neut # (Auto) 6.7, Lymph # (Auto) 1.0, [place] # (Auto) 0.5, Eos # (Auto) 0.0, Baso # (Auto) 0.0 10/30/18 12:25: Sodium 135 L, Potassium 2.7 L*, Chloride 94 L, Carbon Dioxide 17 L, Anion Gap 26.7 H, BUN 17, Creatinine 2.07 H, Estimated Creat Clear 48, Estimated GFR 34 L, Est GFR ( Amer) 41 L, Glucose 124 H, Calcium 8.9 10/30/18 12:25: Magnesium 1.8 10/30/18 12:25: Troponin I < 0.02, Plasma/Serum Alcohol 0 10/30/18 12:30: Lactate 3.0 H 10/30/18 12:30: Influenza Type A Ag Negative, Influenza Type B Ag Negative 10/30/18 15:50: Urine Color Yellow, Urine Appearance Clear, Urine pH 6.5, Ur Specific [place] >= 1.030, Urine Protein 2+, Urine Glucose (UA) Negative, Urine Ketones 1+, Urine Blood 1+, Urine Nitrate Negative, Urine Bilirubin 2+ A, Urine Urobilinogen 0.2, Ur Leukocyte Esterase Negative, Urine RBC 20-50, Urine WBC Occasional, Amorphous Sediment 1+, Urine Bacteria 1+ 10/30/18 15:50: Urine Opiates Screen Negative, Urine Methadone Screen Negative, Ur Barbituates Screen Negative, Ur Phencyclidine Scrn Negative, Ur Amphetamines Screen Negative, U Benzodiazepines Scrn Positive H, Urine Cocaine Screen Negative, U Marijuana (THC) Screen Negative 10/30/18 17:02: Lactate 1.5 I & O for Last 24 hours: Intake & Output 10/28/18 10/29/18 10/30/18 10/31/18 11:59 11:59 11:59 11:59 Weight 180 lb Narrative: Patient is thin, appears older than his stated age. Has a skin grafting scar on the right neck. Oropharynx dry but clear. Cranial nerves are otherwise intact. Anterior lung buckner are clear, heart rate regular. Abdomen soft and benign. Able to move all extremities well, extremities are pale but well-perfused and warm. No stigmata of liver disease. Assessment and Plan (1) Alcohol abuse Current visit: Yes Status: Acute Category: Medical Code(s): F10.10 - Alcohol abuse, uncomplicated I discussed the possibility of alcohol withdrawal seizures with patient, he admits to me that before his father was hospitalized 2 weeks ago he did occasionally drink but that it was "rare." Alcohol level is 0. Seizure precautions. Ativan ordered for recurrent seizures, possible alcohol withdrawal issues. (2) Hypokalemia Start date: Current visit: Yes Status: Acute Category: Medical Code(s): E87.6 - Hypok alemia Patient is able to take p.o. No need for further runs of IV potassium. P.o. replacement and normal saline with potassium and IV fluids. Check labs tomorrow (3) Microscopic hematuria Current visit: Yes Status: Acute Category: Medical Code(s): R31.29 - Other microscopic hematuria Urine culture pending, IV antibiotics on board (4) Syncopal episodes Current visit: Yes Status: Acute Category: Medical Code(s): R55 - Syncope and collapse Wide diagnostic possibility. Patient needs MRI because of abnormal CT scan. EEG. Seizure precautions.
[2018-10-31 07:37] LABS: Basophils % 0.5 % (0.1-2.0); Eosinophils % 0.2 % (0.1-12.0); Hematocrit 43.2 % (42.0-52.0); Lymphocytes # 1.2 K/mm3 (0.7-4.5); Lymphocytes % 14.9 % (10-50); Mean Corpuscular HGB Conc 33.7 g/dL (31.8-35.4); Mean Corpuscular Hemoglobin 31.4 pg (27.0-31.2); Mean Platelet Volume 10.5 fl (7.4-10.4); Monocytes # 0.6 K/mm3 (0.1-1.0); Monocytes % 7.2 % (1.7-9.3); Neutrophils # 6.2 K/mm3 (1.8-7.8); Neutrophils % 77.2 % (37.0-80.0); Platelet Count 93 K/mm3 (142-424); Red Blood Count 4.65 M/mm3 (4.60-6.20); Red Cell Distribution Width 14.4 % (11.5-17.5)
--- NOTE | 2018-10-31 07:48 | Pharmacy Consult Notes ---
[facility] Pharmacy VTE Monitoring - Patient Demographics Admission date: 10/30/18 Report Date: 10/31/18 Time: 07:48 Allergies/Adverse Reactions: Patient Allergies No Known Allergies Allergy (Verified 09/20/17 13:35) Height: 1.91 m Weight: 83.036 kg Patient Problems: Current Active Problems (Updated 10/30/18 @ 17:12 by Bro Palmer MD) Syncopal episodes (Acute) Alcohol abuse (Acute) Hypokalemia (Acute) Fever (Acute) Microscopic hematuria (Acute) - VTE Risk Labs: VTE Related Lab Results Hgb 16.4 g/dL (14.1-18.0) 10/30/18 12:25 Hct 43.2 % (42.0-52.0) 10/31/18 07:13 Plt Count 93 K/mm3 (142-424) L D 10/31/18 07:13 BUN 17 mg/dL (7-18) 10/30/18 12:25 Creatinine 2.07 mg/dL (0.70-1.30) H 10/30/18 12:25 Estimated Creat Clear 48 mL/min (50-200) 10/30/18 12:25 Was VTE Risk Assessment Performed: Yes VTE Score: 2 VTE Risk Level: Very Low Risk - Prophylaxis VTE Prophylaxis Ordered?: Yes Types of VTE Prophylaxis: TEDS Knee High Location of Applied Device: Bilateral Lower Extremeties - VTE Diagnosis Confirmed Treatment or plan recommended: Continue Current Treatment
[2018-10-31 07:49] LABS: Albumin Level 3.4 gm/dL (3.4-5.0); Albumin/Globulin Ratio 0.9 (1.1-1.8); Anion Gap 15.4 mEq/L (5-15); Bilirubin,Total 0.9 mg/dL (0.2-1.0); Calcium 8.4 mg/dL (8.5-10.1); Globulin 3.9 gm/dl (1.3-3.2); Potassium 3.4 mmoL/L (3.5-5.1); Total Protein,Serum 7.3 gm/dL (6.4-8.2)
[2018-10-31 08:03] LABS: Hemoglobin 14.6 g/dL (14.1-18.0)
[2018-10-31 08:42] VITALS: BP 123/71
--- NOTE | 2018-10-31 08:43 | Discharge Summary ---
General - General Admission date:: 10/30/18 Discharge date: 10/31/18 HPI HPI: 53-year-old white male with history of recurrent alcoholism and cholecystectomy who presented to the hospital by EMS after having a syncopal episode that was witnessed by nurses [facility] a local [facility]. He was visiting his father who has been a resident of this prison over the past week or so because of functional decline issues. Patient reports that he had a sensation of fuzzy vision and that he was watching television with his father but when he would look away from the television he could still see the television even on a wall where there was no television mounted. He then does not remember fainting but remembers the nurses standing over him. The nurses reported that he had some tonic-clonic jerking during the very brief episode of syncope. Brought to the emergency department where he was found to have low potassium, no other significant lab abnormalities. CT of head was questionable for ischemic area, no evidence of hemorrhage. Admitted to floor. Patient has a long history of alcoholism that was reported to the ER doctor by his brother. Patient denied alcohol use to the ER doctor. Hospital Course Hospital Course: Admitted for seizure precautions. Given Ativan as needed due to tremor and agitation. No further episodes during hospitalization. Did have CT of his head with possible gliotic change however no focalizing or lateralizing deficits. Decided not to pursue MRI as he had no other indication on exam of stroke. Suspect syncopal episode is either from stress taking care of father or due to his lack of alcohol intake. Pt tolerating PO intake, hemodynamically stable, without further seizure activity. Hypokalemia resolved. No concern for UTI. Medically stable for discharge home Objective Vital signs: Temp Pulse Resp BP Pulse Ox 99.5 F 73 16 142/90 H 95 10/31/18 04:00 10/31/18 04:00 10/31/18 04:00 10/31/18 04:00 10/31/18 04:00 Narrative: Patient is thin, appears older than his stated age. Has a skin grafting scar on the right neck. Oropharynx dry but clear. Cranial nerves are otherwise intact. Anterior lung buckner are clear, heart rate regular. Abdomen soft and benign. Able to move all extremities well, extremities are pale but well-perfused and warm. No lateralizing deficits or focal weakness, no facial asymmetry No stigmata of liver disease, spider angioma, asterixis. Results Labs on day of discharge: Labs from last 24 hours 10/31/18 10/31/18 10/30/18 07:13 07:13 23:28 WBC 8.0 RBC 4.65 Hgb 14.6 D Hct 43.2 MCV 93.0 MCH 31.4 H MCHC 33.7 RDW 14.4 Plt Count 93 L D MPV 10.5 H Neut % (Auto) 77.2 Lymph % (Auto) 14.9 [place] % (Auto) 7.2 Eos % (Auto) 0.2 Baso % (Auto) 0.5 Neut # (Auto) 6.2 Lymph # (Auto) 1.2 [place] # (Auto) 0.6 Eos # (Auto) 0.0 Baso # (Auto) 0.0 Sodium 138 Potassium 3.4 L D Chloride 100 Carbon Dioxide 26 D Anion Gap 15.4 H BUN 16 Creatinine 1.18 D Estimated Creat Clear 85 Estimated GFR 65 Est GFR ( Amer) 78 D Glucose 86 D Lactate Calcium 8.4 L Magnesium Total Bilirubin 0.9 AST 66 H ALT 90 H Alkaline Phosphatase 79 Troponin I < 0.02 Total Protein 7.3 Albumin 3.4 Globulin 3.9 H Albumin/Globulin Ratio 0.9 L Urine Color Urine Appearance Urine pH Ur Specific [place] Urine Protein Urine Glucose (UA) Urine Ketones Urine Blood Urine Nitrate Urine Bilirubin Urine Urobilinogen Ur Leukocyte Esterase Urine RBC Urine WBC Amorphous Sediment Urine Bacteria Urine Opiates Screen Urine Methadone Screen Ur Barbituates Screen Ur Phencyclidine Scrn Ur Amphetamines Screen U Benzodiazepines Scrn Urine Cocaine Screen U Marijuana (THC) Screen Plasma/Serum Alcohol Influenza Type A Ag Influenza Type B Ag 10/30/18 10/30/18 10/30/18 20:21 17:02 15:50 WBC RBC Hgb Hct MCV MCH MCHC RDW Plt Count MPV Neut % (Auto) Lymph % (Auto) [place] % (Auto) Eos % (Auto) Baso % (Auto) Neut # (Auto) Lymph # (Auto) [place] # (Auto) Eos # (Auto) Baso # (Auto) Sodium Potassium Chloride Carbon Dioxide Anion Gap BUN Creatinine Estimated Creat Clear Estimated GFR Est GFR ( Amer) Glucose Lactate 1.5 Calcium Magnesium Total Bilirubin AST ALT Alkaline Phosphatase Troponin I < 0.02 Total Protein Albumin Globulin Albumin/Globulin Ratio Urine Color Urine Appearance Urine pH Ur Specific [place] Urine Protein Urine Glucose (UA) Urine Ketones Urine Blood Urine Nitrate Urine Bilirubin Urine Urobilinogen Ur Leukocyte Esterase Urine RBC Urine WBC Amorphous Sediment Urine Bacteria Urine Opiates Screen Negative Urine Methadone Screen Negative Ur Barbituates Screen Negative Ur Phencyclidine Scrn Negative Ur Amphetamines Screen Negative U Benzodiazepines Scrn Positive H Urine Cocaine Screen Negative U Marijuana (THC) Screen Negative Plasma/Serum Alcohol Influenza Type A Ag Influenza Type B Ag 10/30/18 10/30/18 10/30/18 15:50 12:30 12:30 WBC RBC Hgb Hct MCV MCH MCHC RDW Plt Count MPV Neut % (Auto) Lymph % (Auto) [place] % (Auto) Eos % (Auto) Baso % (Auto) Neut # (Auto) Lymph # (Auto) [place] # (Auto) Eos # (Auto) Baso # (Auto) Sodium Potassium Chloride Carbon Dioxide Anion Gap BUN Creatinine Estimated Creat Clear Estimated GFR Est GFR ( Amer) Glucose Lactate 3.0 H Calcium Magnesium Total Bilirubin AST ALT Alkaline Phosphatase Troponin I Total Protein Albumin Globulin Albumin/Globulin Ratio Urine Color Yellow Urine Appearance Clear Urine pH 6.5 Ur Specific [place] >= 1.030 Urine Protein 2+ Urine Glucose (UA) Negative Urine Ketones 1+ Urine Blood 1+ Urine Nitrate Negative Urine Bilirubin 2+ A Urine Urobilinogen 0.2 Ur Leukocyte Esterase Negative Urine RBC 20-50 Urine WBC Occasional Amorphous Sediment 1+ Urine Bacteria 1+ Urine Opiates Screen Urine Methadone Screen Ur Barbituates Screen Ur Phencyclidine Scrn Ur Amphetamines Screen U Benzodiazepines Scrn Urine Cocaine Screen U Marijuana (THC) Screen Plasma/Serum Alcohol Influenza Type A Ag Negative Influenza Type B Ag Negative 10/30/18 10/30/18 10/30/18 12:25 12:25 12:25 WBC RBC Hgb Hct MCV MCH MCHC RDW Plt Count MPV Neut % (Auto) Lymph % (Auto) [place] % (Auto) Eos % (Auto) Baso % (Auto) Neut # (Auto) Lymph # (Auto) [place] # (Auto) Eos # (Auto) Baso # (Auto) Sodium 135 L Potassium 2.7 L* Chloride 94 L Carbon Dioxide 17 L Anion Gap 26.7 H BUN 17 Creatinine 2.07 H Estimated Creat Clear 48 Estimated GFR 34 L Est GFR ( Amer) 41 L Glucose 124 H Lactate Calcium 8.9 Magnesium 1.8 Total Bilirubin AST ALT Alkaline Phosphatase Troponin I < 0.02 Total Protein Albumin Globulin Albumin/Globulin Ratio Urine Color Urine Appearance Urine pH Ur Specific [place] Urine Protein Urine Glucose (UA) Urine Ketones Urine Blood Urine Nitrate Urine Bilirubin Urine Urobilinogen Ur Leukocyte Esterase Urine RBC Urine WBC Amorphous Sediment Urine Bacteria Urine Opiates Screen Urine Methadone Screen Ur Barbituates Screen Ur Phencyclidine Scrn Ur Amphetamines Screen U Benzodiazepines Scrn Urine Cocaine Screen U Marijuana (THC) Screen Plasma/Serum Alcohol 0 Influenza Type A Ag Influenza Type B Ag 10/30/18 12:25 WBC 8.2 RBC 5.09 Hgb 16.4 Hct 47.5 MCV 93.3 MCH 32.2 H MCHC 34.5 RDW 14.2 Plt Count 125 L MPV 10.3 Neut % (Auto) 81.5 H Lymph % (Auto) 12.3 [place] % (Auto) 5.7 Eos % (Auto) 0.1 Baso % (Auto) 0.4 Neut # (Auto) 6.7 Lymph # (Auto) 1.0 [place] # (Auto) 0.5 Eos # (Auto) 0.0 Baso # (Auto) 0.0 Sodium Potassium Chloride Carbon Dioxide Anion Gap BUN Creatinine Estimated Creat Clear Estimated GFR Est GFR ( Amer) Glucose Lactate Calcium Magnesium Total Bilirubin AST ALT Alkaline Phosphatase Troponin I Total Protein Albumin Globulin Albumin/Globulin Ratio Urine Color Urine Appearance Urine pH Ur Specific [place] Urine Protein Urine Glucose (UA) Urine Ketones Urine Blood Urine Nitrate Urine Bilirubin Urine Urobilinogen Ur Leukocyte Esterase Urine RBC Urine WBC Amorphous Sediment Urine Bacteria Urine Opiates Screen Urine Methadone Screen Ur Barbituates Screen Ur Phencyclidine Scrn Ur Amphetamines Screen U Benzodiazepines Scrn Urine Cocaine Screen U Marijuana (THC) Screen Plasma/Serum Alcohol Influenza Type A Ag Influenza Type B Ag DS: Diagnosis - Discharge Diagnosis (1) Alcohol abuse Status: Chronic (2) Hypokalemia Status: Resolved (3) Microscopic hematuria Status: Acute (4) Syncopal episodes Status: Acute Discharge Plan - Patient Discharge Instructions ACTIVITY: Continue current activity DIET: continue same diet Patient Instructions: DI for Syncope in Adults (Fainting) - Follow up Plan Follow up with: Kai Oviedo MD [Staff Physician] - 1 week Disposition: Home, Self-Senior Living Medications: Home Medications Medication Instructions Recorded Confirmed Type No Known Home Medications 10/30/18 10/30/18 History Prescriptions/Medication Reconciliation: No Action No Known Home Medications
== END 2018-10-31 09:52 | disposition home or self-care (01) ==
LOC: ER 12:11 → 2ND 12:11
PROVIDERS: ADMIT Family Medicine; ATTEND Family Medicine
DX: R50.9 Fever, unspecified; E87.6 Hypokalemia; Z82.49 Family history of ischemic heart disease and other diseases of the circulatory system; R41.82 Altered mental status, unspecified; Z83.438 Family history of other disorder of lipoprotein metabolism and other lipidemia; R55 Syncope and collapse; F10.20 Alcohol dependence, uncomplicated; R31.29 Other microscopic hematuria; Z87.19 Personal history of other diseases of the digestive system; Z82.3 Family history of stroke
CPT/HCPCS: 36415; 70450; 71020; 71046; 80048; 80053; 80305; 81001; 83605; 83735; 84484; 85025; 87040; 87086; 87275; 87276; 93005; 96365; 96367; 96375; 99285; G0378

== ENCOUNTER 2022-05-30 01:38 | Emergency (ER) | payer OTHER, SELFPAY ==
[2022-05-30 01:38] VITALS: BP 162/105; PULSE 93; RESP 16; TEMP 36.9; O2SAT 97; BMI 23.7
--- NOTE | 2022-05-30 01:42 | ECG_ITS ---
APPROVED REPORT Exam: Resting ECG HR:90 bpm ECG Measurements Heart Rate 90 AXES WI 201 P 60 QRSd 94 QRS 50 QT 353 T 64 QTc 400 Conclusion SINUS RHYTHM NORMAL ECG UNCONFIRMED REPORT Electronically signed by : Kai Oviedo MD 05/30/2022 14:54:39
--- NOTE | 2022-05-30 01:44 | XR_ITS ---
PROCEDURE INFORMATION: Exam: XR Chest Exam date and time: 05/30/2022 2:13 AM Age: 57 years old Clinical indication: Injury or trauma; Fall; Blunt trauma (contusions or hematomas) TECHNIQUE: Imaging protocol: Radiologic exam of the chest. Views: 4 or more views. COMPARISON: CR CXR2V XR chest 2V 10/30/2018 1:45 PM FINDINGS: Lungs: Scarring within the right upper lobe. No consolidation. Pleural spaces: Unremarkable. No pleural effusion. No pneumothorax. Heart/Mediastinum: Unremarkable. No cardiomegaly. Vasculature: Unremarkable. Bones/joints: Old fractures of the posterior right 5th and 6th ribs are noted. Osseous fragment between the right coracoid and clavicle likely related to old trauma. IMPRESSION: No acute cardiopulmonary finding.
--- NOTE | 2022-05-30 01:44 | CT_ITS ---
PROCEDURE INFORMATION: Exam: CT Head Without Contrast Exam date and time: 05/30/2022 1:57 AM Age: 57 years old Clinical indication: Injury or trauma; Fall; Blunt trauma (contusions or hematomas) TECHNIQUE: Imaging protocol: Computed tomography of the head without contrast. Radiation optimization: All CT scans at this facility use at least one of these dose optimization techniques: automated exposure control; mA and/or kV adjustment per patient size (includes targeted exams where dose is matched to clinical indication); or iterative reconstruction. COMPARISON: HEADWO CT head/brain wo con 10/30/2018 1:42 PM FINDINGS: Brain: No evidence of acute intracranial hemorrhage. No acute parenchymal edema. No mass or shift. Cerebral ventricles: No ventriculomegaly. Paranasal sinuses: Visualized sinuses are unremarkable. No fluid levels. Mastoid air cells: Unremarkable as visualized. No mastoid effusion. Bones/joints: No acute fracture. Soft tissues: Unremarkable. IMPRESSION: No acute intracranial process.
--- NOTE | 2022-05-30 01:44 | CT_ITS ---
PROCEDURE INFORMATION: Exam: CT Cervical Spine Without Contrast Exam date and time: 05/30/2022 1:57 AM Age: 57 years old Clinical indication: Injury or trauma; Fall; Blunt trauma TECHNIQUE: Imaging protocol: Computed tomography of the cervical spine without contrast. Radiation optimization: All CT scans at this facility use at least one of these dose optimization techniques: automated exposure control; mA and/or kV adjustment per patient size (includes targeted exams where dose is matched to clinical indication); or iterative reconstruction. COMPARISON: HEADWO CT head/brain wo con 10/30/2018 1:42 PM FINDINGS: Bones/joints: There is spondyloarthropathy. There is no acute fracture or dislocation. There are degenerative disc changes. Lungs: The lung apices demonstrate no acute process. Soft tissues: Unremarkable. IMPRESSION: No acute process or fracture. 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
--- NOTE | 2022-05-30 01:44 | XR_ITS ---
PROCEDURE INFORMATION: Exam: XR Pelvis Exam date and time: 05/30/2022 2:13 AM Age: 57 years old Clinical indication: Injury or trauma; Fall; Blunt trauma (contusions or hematomas); Bilateral; Pelvic region TECHNIQUE: Imaging protocol: Radiologic exam of the pelvis. Views: 1 or 2 view. COMPARISON: ABDPELWO CT abdomen pelvis wo con 09/02/2017 8:04 PM FINDINGS: Bones/joints: The bony pelvis is intact. There is no fracture. The SI joints, hips and pubic symphysis are aligned. Proximal femurs are normal without evidence of fracture. Soft tissues: Unremarkable. IMPRESSION: No acute abnormality pelvis or proximal femurs.
[2022-05-30 01:48] LABS: Basophils # 0.1 K/mm3 (0-0.2); Basophils % 1.1 % (0.1-2.0); Eosinophils # 0.2 K/mm3 (0.0-0.4); Eosinophils % 2.4 % (0.1-12.0); Hematocrit 50.3 % (42.0-52.0); Hemoglobin 15.6 g/dL (14.1-18.0); Lymphocytes # 2.2 K/mm3 (0.7-4.5); Lymphocytes % 31.7 % (10-50); Mean Corpuscular HGB Conc 31.1 g/dL (31.8-35.4); Mean Corpuscular Hemoglobin 29.6 pg (27.0-31.2); Mean Corpuscular Volume 95.3 fl (80-94); Mean Platelet Volume 7.7 fl (7.4-10.4); Monocytes # 0.5 K/mm3 (0.1-1.0); Monocytes % 6.5 % (1.7-9.3); Neutrophils # 4.1 K/mm3 (1.8-7.8); Neutrophils % 58.3 % (37.0-80.0); Platelet Count 199 K/mm3 (142-424); Red Blood Count 5.27 M/mm3 (4.60-6.20)
[2022-05-30 01:54] LABS: Chloride 106 mmol/L (98-107); Potassium 3.6 mmoL/L (3.5-5.1); Sodium 146 mmol/L (136-145)
[2022-05-30 01:57] LABS: Alanine Aminotransferase 38 U/L (12-78); Albumin Level 3.9 g/dl (3.5-5.0); Albumin/Globulin Ratio 1.3 (1.1-1.8); Alkaline Phosphatase 128 U/L (38-126); Anion Gap 16.6 mEq/L (5-15); Aspartate Amino Transferase 60 U/L (17-59); Bilirubin,Total 0.3 mg/dl (0.2-1.3); Blood Urea Nitrogen 15 mg/dl (9-20); Carbon Dioxide 27 mmol/L (22.0-30.0); Creatinine Clearance Estimated 64 mL/min (50-200); Estimated Glomerular Filt Rate 48 ml/min (>60); GFR (African American) 58 ML/MIN (>60); Globulin 2.9 g/dL (1.3-3.2); Total Protein,Serum 6.8 g/dl (6.3-8.2)
[2022-05-30 01:58] LABS: Calcium 8.8 mg/dl (8.4-10.2); Glucose 99 mg/dl (74-100)
[2022-05-30 02:10] LABS: Ethyl Alcohol 418 mg/dl (0-10); Troponin I < 0.01 ng/ml (0.00-0.034)
--- NOTE | 2022-05-30 02:12 | HMH.EDFALL ---
Discharge Plan Disposition Patient Disposition: Home, Self-Care Prescriptions Prescriptions: No Action No Known Home Medications Clinical Impressions Clinical Impression: Episode of syncope, Elevated ETOH level Instructions Patient Instructions: DI for Syncope in Adults (Fainting), Alcohol Use Disorder Discharge ED Provider: Bro Gaston Fall HPI General Chief Complaint: Fall Stated Complaint: syncope Time Seen by Provider: 05/30/22 02:00 Mode of Arrival: EMS Source of Information: Patient, EMS and Medical Record Limitations: No Limitations Description of Symptoms (Recalled from ER Triage Doc. by RN): EMS called out pt laying in bathroom floor. pt states he remember being dizzy before falling. pt has no c/o History of Present Illness HPI Narrative: was on toilet and has syncopal episode - denied chest pain or arrthymia - MD complaint: fall Onset (ago): hour(s) Fall from: other (off toilet ) Fall witnessed: no Place fall occurred: home Loss of consciousness: unsure Prolonged down time: no Context: alcohol use Severity: moderate Associated symptoms (after fall): denies Related Data Home Medications Medication Instructions Recorded Confirmed No Known Home Medications 10/30/18 10/30/18 Allergies Allergy/AdvReac Type Severity Reaction Status Date / Time No Known Allergies Allergy Verified 09/20/17 13:35 PFSH PFSH Social History Smoking Status: Never smoker second hand exposure: No alcohol intake: former counseling provided: provider counseling current occupational status: unemployed Travel in the last 8 weeks: None household members: family housing: house caffeine: No ROS Obtained: Yes All systems reviewed & no additional complaints except as documented Physical Exam General General appearance: alert Head Head exam: normocephalic Eye Eye exam: Present PERRL and EOMI; Absent nystagmus ENT ENT exam: Present mucous membranes moist and other (no evid of tongue biting ) Neck Neck exam: Present trachea midline; Absent full ROM or tenderness Respiratory Respiratory exam: Present normal lung sounds bilaterally; Absent respiratory distress Cardiovascular Cardiovascular exam: Present regular rate and systolic murmur Abdominal Exam Abdominal exam: Present soft; Absent tenderness Extremities Exam Extremities exam: Present full ROM Back Exam Back exam: Absent tenderness Neurological Exam Neurological exam: Present alert, oriented X3, CN II-XII intact and other (gcs=15); Absent motor sensory deficit Psychiatric Psychiatric exam: Present normal affect Skin Skin exam: Absent rash Medical Decision Making Medical Records Medical records reviewed: Yes I reviewed the patient's medical records. Isaiah Inquiry Pt receiving controlled substance: No Vital Signs: 05/30/22 01:38 05/30/22 02:49 Temperature 98.4 F Temperature Source Oral Pulse Rate [Right] 93 H Respiratory Rate 16 Blood Pressure [Orthostatic Lying Right Arm] 136/89 Blood Pressure [Orthostatic Sitting Right Arm] 145/90 H Blood Pressure [Orthostatic Standing Right Arm] 88/66 L Blood Pressure [Right Arm] 162/105 H Blood Pressure Mean [Right Arm] 124 02 Sat by Pulse Oximetry 97 Lab Data Lab results reviewed: Yes I reviewed the patient's lab results. Lab Results 05/30/22 01:39: WBC 7.0, RBC 5.27, Hgb 15.6, Hct 50.3, MCV 95.3 H, MCH 29.6, MCHC 31.1 L, RDW 14.0, Plt Count 199, MPV 7.7, Neut % (Auto) 58.3, Lymph % (Auto) 31.7, [place] % (Auto) 6.5, Eos % (Auto) 2.4, Baso % (Auto) 1.1, Neut # (Auto) 4.1, Lymph # (Auto) 2.2, [place] # (Auto) 0.5, Eos # (Auto) 0.2, Baso # (Auto) 0.1 05/30/22 01:39: Sodium 146 H, Potassium 3.6, Chloride 106, Carbon Dioxide 27, Anion Gap 16.6 H, BUN 15, Creatinine 1.50 H, Estimated Creat Clear 64, Estimated GFR 48 L, Est GFR ( Amer) 58 L, Glucose 99, Calcium 8.8, Total Bilirubin 0.3, AST 60 H, ALT 38, Alkaline Phosphatase 128 H, Troponin I < 0.01, Total P
--- NOTE | 2022-05-30 02:12 | PC.NURSE ---
Ray from the lab called with a critical lab value of ETOH [id number]
[2022-05-30 02:49] VITALS: BP 136/89; BP 145/90; BP 88/66
[2022-05-30 02:58] VITALS: BP 128/82; PULSE 91; RESP 16; TEMP 37.1; O2SAT 94
== END 2022-05-30 03:50 | disposition home or self-care (01) ==
PROVIDERS: Emergency Provider Emergency Medicine
DX: R55 Syncope and collapse (principal); F10.129 Alcohol abuse with intoxication, unspecified; W18.11XA Fall from or off toilet without subsequent striking against object, initial encounter
CPT/HCPCS: 70450; 71045; 72125; 72170; 80053; 84484; 85025; 93005; 96360; 99285

== ENCOUNTER → 2022-07-16 12:38 | Outpatient (CLI) | payer OTHER, SELFPAY ==
[2022-07-16 15:22] LABS: Alanine Aminotransferase 28 U/L (12-78); Albumin Level 4.2 g/dl (3.5-5.0); Albumin/Globulin Ratio 1.4 (1.1-1.8); Alkaline Phosphatase 108 U/L (38-126); Anion Gap 14.2 mEq/L (5-15); Aspartate Amino Transferase 41 U/L (17-59); Bilirubin,Total 1.3 mg/dl (0.2-1.3); Blood Urea Nitrogen 14 mg/dl (9-20); Carbon Dioxide 26 mmol/L (22.0-30.0); Chloride 101 mmol/L (98-107); Chol/HDL Ratio 5.7 (1-3.5); Cholesterol 216 mg/dl (140-200); Estimated Glomerular Filt Rate 62 ml/min (>60); GFR (African American) 76 ML/MIN (>60); Globulin 3.1 g/dL (1.3-3.2); Glucose 77 mg/dl (74-100); HDL Cholesterol 38 mg/dl (40-60); Potassium 4.2 mmoL/L (3.5-5.1); Sodium 137 mmol/L (136-145); Total Protein,Serum 7.3 g/dl (6.3-8.2); Triglycerides 72 mg/dl (30-150); VLDL Cholesterol 14 mg/dL (0-40)
[2022-07-16 15:33] LABS: Direct LDL Cholesterol 145.87 mg/dL (100-129)
[2022-07-16 15:53] LABS: Prostate Specific Ag Screen 0.4 ng/ml (0.0-4.0)
== END ==
PROVIDERS: PCP Internal Medicine; Visit Provider Internal Medicine
DX: G25.0 Essential tremor (principal); E78.5 Hyperlipidemia, unspecified; M17.0 Bilateral primary osteoarthritis of knee; Z12.5 Encounter for screening for malignant neoplasm of prostate
CPT/HCPCS: 36415; 80053; 80061; G0103

== ENCOUNTER 2024-02-15 09:15 | Outpatient (CLI) | payer OTHER, SELFPAY ==
[2024-02-15 17:34] LABS: Basophils # 0.1 K/mm3 (0-0.2); Basophils % 1.2 % (0.1-2.0); Eosinophils # 0.2 K/mm3 (0.0-0.4); Eosinophils % 2.4 % (0.1-12.0); Hematocrit 48.7 % (42.0-52.0); Hemoglobin 15.6 g/dL (14.1-18.0); Lymphocytes # 1.5 K/mm3 (0.7-4.5); Lymphocytes % 19.2 % (10-50); Mean Corpuscular HGB Conc 31.9 g/dL (31.8-35.4); Mean Platelet Volume 11.1 fl (7.4-10.4); Monocytes # 0.4 K/mm3 (0.1-1.0); Monocytes % 5.7 % (1.7-9.3); Neutrophils # 5.4 K/mm3 (1.8-7.8); Neutrophils % 71.4 % (37.0-80.0); Platelet Count 203 K/mm3 (142-424); Red Blood Count 5.02 M/mm3 (4.60-6.20); Red Cell Distribution Width 13.6 % (11.5-17.5); White Blood Count 7.5 K/mm3 (4.8-10.8)
[2024-02-15 18:57] LABS: Alanine Aminotransferase 31 U/L (12-78); Albumin/Globulin Ratio 1.3 (1.1-1.8); Alkaline Phosphatase 94 U/L (38-126); Anion Gap 10.9 mEq/L (5-15); Aspartate Amino Transferase 35 U/L (17-59); Bilirubin,Total 0.6 mg/dl (0.2-1.3); Blood Urea Nitrogen 13 mg/dl (9-20); Calcium 9.3 mg/dl (8.4-10.2); Carbon Dioxide 28 mmol/L (22.0-30.0); Chloride 103 mmol/L (98-107); Chol/HDL Ratio 6.4 (1-3.5); Cholesterol 238 mg/dl (140-200); Estimated Glomerular Filt Rate 62 ml/min (>60); GFR (African American) 75 ML/MIN (>60); Globulin 3.2 g/dL (1.3-3.2); Glucose 67 mg/dl (74-100); HDL Cholesterol 37 mg/dl (40-60); Potassium 3.9 mmoL/L (3.5-5.1); Sodium 138 mmol/L (136-145); Total Protein,Serum 7.2 g/dl (6.3-8.2); Triglycerides 98 mg/dl (30-150); VLDL Cholesterol 20 mg/dL (0-40)
[2024-02-15 19:08] LABS: Direct LDL Cholesterol 145.38 mg/dL (100-129)
[2024-02-15 19:26] LABS: Prostate Specific Ag Screen 0.3 ng/ml (0.0-4.0)
== END 2024-02-15 23:59 | disposition home or self-care (01) ==
LOC: LAB.DROPOF 02-16 11:14
PROVIDERS: PCP Internal Medicine; Visit Provider Internal Medicine
DX: G25.0 Essential tremor (principal); E78.5 Hyperlipidemia, unspecified; Z12.5 Encounter for screening for malignant neoplasm of prostate
CPT/HCPCS: 80053; 80061; 85025; G0103

== ENCOUNTER 2024-04-24 07:10 | Day surgery (SDC) | payer OTHER, SELFPAY ==
[2024-04-19 13:34] VITALS: BMI 24.9
[2024-04-24 08:10] VITALS: BP 169/76; PULSE 52; RESP 18; O2SAT 98
[2024-04-24] MEDS: PHENYLEPHRINE 2.5% OPHTH SOLN 2ML OP ×3 (08:10→08:20)
[2024-04-24] MEDS: CYCLOPENTOLATE 2% OPHTH SOLN 2ML BOTTLE OP ×3 (08:10→08:20)
[2024-04-24] MEDS: TETRACAINE 0.5% OPTH SOL 15ML OP ×3 (08:10→08:20)
[2024-04-24 09:15] VITALS: BP 183/82; PULSE 51; RESP 17; O2SAT 99
[2024-04-24] MEDS: MIDAZOLAM 2MG/2ML VIAL 1 MG IV (09:15)
[2024-04-24 09:20] VITALS: BP 187/81; PULSE 51; RESP 18; O2SAT 96
[2024-04-24] MEDS: TIMOLOL 0.5% OPTH SOLN 5ML OP (09:21)
[2024-04-24] MEDS: SODIUM CHLORIDE 0.9% 10ML FLUSH SYRINGE 10 ML IV (09:21)
[2024-04-24] MEDS: LIDOCAINE 1% PF 2ML AMPULE 2 ML IJ (09:21)
[2024-04-24] MEDS: TOBRAMYCIN/DEX OPTH SUSP 2.5ML OP (09:21)
[2024-04-24 09:25] VITALS: BP 173/81; PULSE 50; RESP 18; O2SAT 97
[2024-04-24 09:30] VITALS: BP 168/79; PULSE 50; RESP 18; O2SAT 97
[2024-04-24 09:34] VITALS: BP 157/93; PULSE 52; RESP 18; TEMP 36.4; O2SAT 99
--- NOTE | 2024-04-24 11:40 | P.PCN_ITS ---
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 The patient reports that this interferes with ADLs such as reading, watching TV and/or driving or the vision is like looking through a foggy haze and is very troubling. The patient was examined and found to have a visually significant cataract with best corrected vision of [20/600] by refraction and/or glare testing. Treatment options, risks and benefits were explained and the patient elected to have cataract surgery in an attempt to improve their vision. The patient had the eye anesthetized with topical tetracaine, the eye ways prepped and draped in the usual fashion for cataract surgery. A paracentesis and a temporal keratotomy were made. 0.2cc of 1% lidocaine PF was placed into the anterior chamber. And aqueous/viscoelastic exchange was done and a 360 degree capsulorexis was performed. Through hydrodissection and delineation with BSS on a cannula was done. The lens nucleus was phecoemulsified with CDE of [7.97]. Residual cortical material was removed using automated I&A The capsular bag was deepened with viscoelastica and a PCIOL was placed in the capsular bag with good centration and stability. Residual viscoelastic was removed using automated I&A. The keratotomy incision was hydrated with BSS on a cannula. The wound were checked and found to be water tight. IOP was checked digitally and adjusted as needed so as not to be too high. 1 drop of timolol 0.5%, ofloxacin, prednisolone acetate and ketorolac was instilled and eye shield taped over the eye. The patient was taken to recovery in good condition and will be seen postoperatively.
== END 2024-04-24 09:40 | disposition home or self-care (01) ==
PROVIDERS: PCP Internal Medicine; Visit Provider Ophthalmology
PROC: (CPT 66984; principal; 2024-04-24 09:15)
DX: H25.811 Combined forms of age-related cataract, right eye (principal)
CPT/HCPCS: 66984; J2250; V2632

== ENCOUNTER 2024-08-16 13:50 | Outpatient (CLI) | payer OTHER, SELFPAY ==
[2024-08-16 14:16] LABS: Albumin Level 4.1 g/dl (3.5-5.0); Chloride 99 mmol/L (98-107)
[2024-08-16 14:17] LABS: Potassium 4.5 mmoL/L (3.5-5.1); Sodium 140 mmol/L (136-145)
[2024-08-16 14:19] LABS: Alanine Aminotransferase 24 U/L (12-78); Anion Gap 13.5 mEq/L (5-15); Aspartate Amino Transferase 38 U/L (17-59); Blood Urea Nitrogen 11 mg/dl (9-20); Carbon Dioxide 32 mmol/L (22.0-30.0); Estimated Glomerular Filt Rate 86 ml/min (>60); GFR (African American) 105 ML/MIN (>60)
[2024-08-16 14:20] LABS: Albumin/Globulin Ratio 1.5 (1.1-1.8); Alkaline Phosphatase 129 U/L (38-126); Bilirubin,Total 0.9 mg/dl (0.2-1.3); Cholesterol 166 mg/dl (140-200); Globulin 2.7 g/dL (1.3-3.2); Glucose 80 mg/dl (74-100); HDL Cholesterol 41 mg/dl (40-60); Total Protein,Serum 6.8 g/dl (6.3-8.2); Triglycerides 87 mg/dl (30-150); VLDL Cholesterol 17 mg/dL (0-40)
[2024-08-16 14:36] LABS: Direct LDL Cholesterol 90.74 mg/dL (100-129)
== END 2024-08-16 23:59 | disposition home or self-care (01) ==
LOC: LAB.DROPOF 13:51
PROVIDERS: PCP Internal Medicine; Visit Provider Internal Medicine
DX: G25.0 Essential tremor (principal); E78.5 Hyperlipidemia, unspecified
CPT/HCPCS: 80053; 80061

== ENCOUNTER 2025-02-25 03:56 | Observation (INO) | payer OTHER, SELFPAY ==
[2025-02-25] VITALS (12 sets, daily range): BP systolic 72–145; BP diastolic 26–91; PULSE 61–120; RESP 14–18; TEMP 36.6–36.9; O2SAT 92–98; BMI 24.4; BMI 23.1; BMI 23.0
[2025-02-25] MEDS: ONDANSETRON 4MG/2ML VIAL 4 MG IV ×2 (04:02→09:58)
--- NOTE | 2025-02-25 04:03 | ED_ITS ---
Discharge Plan Disposition Patient Disposition: Admitted Clinical Impressions Clinical Impression: COLE (acute kidney injury), Acute hypokalemia, Hypophosphatemia, Leukocytosis, Acute hyponatremia Discharge ED Provider: Carlos Asencio General Adult HPI General Chief complaint: Abdominal Pain Stated complaint: Vomitting and Dizziness Time Seen by Provider: 02/25/25 04:03 History of Present Illness HPI narrative: 59 male with history of essential tremor, hyperlipidemia presents for nausea vomiting and dizziness. He reports that he has been going under a lot of stress recently after the passing of his dad. His dad passed on the , was buried on the . Since the he has been having nausea vomiting consistently. Over the last few days he has also had dizziness, worse when standing. He denies any headache, vision changes, numbness. Reports generalized weakness. Feels unsteady on his feet. Denies any chest pain or shortness of breath. Related Data Previous Rx's ?Medication ?Instructions ?Recorded propranolol 20 mg tablet 40 mg (2 x 20 mg) PO TID #18 0 tabs 12/17/24 atorvastatin 20 mg tablet See Rx Instructions .Route 0 01/11/25 .COMPLEX #90 tabs trazodone 100 mg tablet 100 mg PO HS #90 tabs Allergies Allergy/AdvReac Type Severity Reaction Status Date / Time No Known Allergies Allergy Verified 08/16/24 09:04 [facility] Disclaimer: The information contained in this section may have been updated after the patient was seen, as this information can be updated by other users. Medical History History of cataract Tremor Hyperlipidemia Surgical History History of cholecystectomy Family History Other COPD (chronic obstructive pulmonary disease) Heart disease History of renal stent Tremor Social History Smoking Status: Never smoker second hand exposure: No alcohol intake: never counseling provided: provider counseling current occupational status: unemployed Travel in the last 8 weeks?: None household members: family housing: house caffeine: No Other Medical History Have you received the Flu Vaccine for this season: No Have you received the Pneumonia Vaccine: No ROS Obtained: Yes All systems reviewed & no additional complaints except as documented Physical Exam General General appearance: alert and cachectic Head Head exam: atraumatic and normocephalic Eye Eye exam: Present normal appearance, PERRL and EOMI ENT ENT exam: Present normal oropharynx and normal external ear exam Neck Neck exam: Present normal inspection and full ROM Chest Chest inspection: Present normal inspection and symmetric chest wall rise; Absent tenderness Respiratory Respiratory exam: Present normal lung sounds bilaterally; Absent respiratory distress Cardiovascular Cardiovascular exam: Present normal rhythm and tachycardia Abdominal Exam Abdominal exam: Present soft; Absent distention, tenderness or guarding Extremities Exam Extremities exam: Present normal inspection; Absent edema or joint swelling Back Exam Back exam: Present normal inspection; Absent tenderness Neurological Exam Neurological exam: Present alert, oriented X3 and other (Essential tremor noted, cranial nerves intact, intact lower extremity strength and cerebellar function); Absent motor sensory deficit Psychiatric Psychiatric exam: Present normal affect and normal mood Skin Skin exam: Present warm, dry and normal color Lymphatic Lymphatic Findings: no adenopathy Medical Decision Making Medical Records Medical records reviewed: Yes I reviewed the patient's medical records. Screening: Per USPSTF and CDC recommendations, given the prevalence of disease in our region, it is our hospital?s policy to screen for HIV and viral Hepatitis for all patients aged 18 and over and those with ongoing risk factors. Isaiah Inquiry Pt receiving controlled substance: No Isaiah was queried for this patient: No Vital Signs: 02/25/25 04:00 Temperature 98.1 F Temperature Source Oral Pulse Rate [Right Radial] 101 H Respiratory Rate 18 Blood Pressure [Right Arm] 134/90 Blood Pressure Mean [Right Arm] 104 Blood Pressure Position [Right Arm] Supine 02 Sat by Pulse Oximetry 97 Oxygen Delivery Method Room Air Lab Data Lab results reviewed: Yes I reviewed the patient's lab results. Lab Results 02/25/25 03:58: WBC 18.9 H, RBC 4.92, Hgb 16.1, Hct 43.4, MCV 88.2, MCH 32.7 H, MCHC 37.1 H, RDW 11.9, Plt Count 117 L, MPV 12.5 H, Neut % (Auto) 84.6 H, Lymph % (Auto) 4.8 L, [place] % (Auto) 9.8 H, Eos % (Auto) 0.0 L, Baso % (Auto) 0.3, Neut # (Auto) 16.0 H, Lymph # (Auto) 0.9, [place] # (Auto) 1.9 H, Eos # (Auto) 0.0, Baso # (Auto) 0.1, Total Counted 100, Neutrophils % (Manual) 78 H, Band Neutrophils % 13 H, Lymphocytes % (Manual) 4 L, Monocytes % (Manual) 5, Sodium 129 L, P otassium 2.7 L*, Chloride 74 L, Carbon Dioxide 30, Anion Gap 27.7 H, BUN 43 H, C reatinine 1.70 H, Estimated Creat Clear 56, Estimated GFR 41 L, Est GFR ( Amer) 50 L, Glucose 165 H, Calcium 9.7, Phosphorus 1.8 L, Magnesium 1.6, Total Bilirubin 3.2 H, AST 114 H, ALT 106 H, Alkaline Phosphatase 122, NT-Pro-B Natriuret Pep 718 H, Total Protein 8.7 H D, Albumin 5.1 H, Globulin 3.6 H, Albumin/Globulin Ratio 1.4, Lipase 254, TSH 0.98, Thyroxine (T4) 5.3 L, Plasma/Serum Alcohol < 10 02/25/25 04:55: VBG pH 7.45 H, VBG pCO2 36.2, VBG pO2 38.0, VBG HCO3 24.3, VBG Total CO2 25.4, VBG O2 Saturation 73.5 H, VBG Base Excess 0.2, VBG Lactic Acid 2.3 H 02/25/25 03:58 02/25/25 03:58 Orders (Tests/Meds): ED MEDICATIONS Generic Name Dose Route Start Last Admin Trade Name Alexysq PRN Reason Stop Dose Admin Folic Acid 1 mg 02/25/25 09:00 02/25/25 04:58 Folic Acid 1mg Tablet PO 03/27/25 08:59 1 mg DAILY BRITNEY Administration Potassium Chloride/Water 100 mls @ 100 mls/hr 02/25/25 04:45 02/25/25 04:54 Potassium Chloride 10meq/100ml Ivpb IV 02/25/25 07:44 100 mls/hr Q1H BRITNEY Administration Sodium Chloride 10 ml 02/25/25 05:08 02/25/25 05:15 Sodium Chloride 0.9% 10ml Syr (Rad Only) IV 03/27/25 05:07 10 ml NEEDED PRN Administration Maintain IV Site Discontinued Medications Generic Name Dose Route Start Last Admin Trade Name Freq PRN Reason Stop Dose Admin Sodium Chloride 1,000 mls @ 999 mls/hr 02/25/25 04:30 02/25/25 04:27 Sod Chlor 0.9% 1000ml Bag IV 02/25/25 05:30 999 mls/hr .Q1H1M BRITNEY Administration Magnesium Sulfate 2 gm in 50 mls @ 150 mls/hr 02/25/25 04:39 02/25/25 04:53 Magnesium Sulfate 2gm/50ml Premix IV 02/25/25 04:58 150 mls/hr ONCE ONE Administration Thiamine HCl 100 mg/ Sodium 51 mls @ 204 mls/hr 02/25/25 04:43 02/25/25 04:53 Chloride IV 02/25/25 04:44 204 mls/hr ONCE ONE Administration Iopamidol 155 ml 02/25/25 05:08 02/25/25 05:15 Iopamidol-370 (76%);100ml Bottle IV 02/25/25 05:09 155 ml ONCE ONE Administration Ondansetron HCl 4 mg 02/25/25 03:54 02/25/25 04:02 Ondansetron 4mg/2ml Vial IV 02/25/25 03:55 4 mg ONCE ONE Administration Potassium Chloride 40 meq 02/25/25 04:39 02/25/25 04:54 Potassium Chloride 20meq Tab PO 02/25/25 04:40 40 meq ONCE ONE Administration Potassium Phosphate 500 mg 02/25/25 04:41 02/25/25 05:00 K-Phos Neutral 250mg Tablet PO 02/25/25 04:42 500 mg ONCE ONE Administration Sodium Chloride 40 ml 02/25/25 05:08 02/25/25 05:15 0.9 % Sodium Chloride 50 Ml Vial IV 02/25/25 05:09 40 ml ONCE ONE Administration ORDERS Category Date Time Status CT abdomen pelvis w con Stat Cat Scan 02/25/25 04:[address] angio head Stat Cat Scan 02/25/25 04:[address] angio neck Stat Cat Scan 02/25/25 04:[address] head/brain wo con Stat Cat Scan 02/25/25 04:24 Completed BNP [NT Pro Brain Natriuretic Pep.] Stat Lab 02/25/25 03:58 Completed Complete Blood Count Auto Diff Stat Lab 02/25/25 03:58 Completed Comprehensive Metabolic Panel Stat Lab 02/25/25 03:58 Completed Ethanol [Ethyl Alcohol] Stat Lab 02/25/25 03:58 Completed Lipase Stat Lab 02/25/25 03:58 Completed Magnesium Stat Lab 02/25/25 03:58 Completed Phosphorous Stat Lab 02/25/25 03:58 Completed T4 (Thyroxine) Stat Lab 02/25/25 03:58 Completed TSH [Thyroid Stimulating Hormone] Stat Lab 02/25/25 03:58 Completed UDS [Drug Screen,Urine] Stat Lab 02/25/25 04:24 Ordered Urinalysis and Microscopic Stat Lab 02/25/25 03:54 Ordered VBG [Venous Blood Gas] Stat RT 02/25/25 04:55 Completed Medical Decision Narrative: 59-year-old male with history of essential tremor and hyperlipidemia presents for several days of nausea vomiting, now with worsening dizziness, especially with standing. History was obtained via interactive discussion with patient, chart review. On arrival, patient is [afebrile, hemodynamically stable, satting appropriately, alert, oriented x4, GCS 15], moving all extremities spontaneously. Full physical exam performed and significant for generally thin and chronically ill-appearing male. No focal abnormalities noted, normal neurologic exam with exception of baseline tremor. Differential includes but is not limited to gastroenteritis, occult malignancy, dehydration, COLE, bowel obstruction, intracranial pathology. Patient was given 4 Zofran, 1 L IV fluid bolus for symptomatic management and correction of underlying abnormalities. Workup initiated including broad- spectrum labs, urine, CT head, CTA head neck, CT abdomen pelvis with IV contrast. On re-evaluation, patient [remains afebrile, HD stable.] Laboratory workup independently interpreted by me and significant for marked abnormalities. Creatinine 1.7, BUN 43, significantly up from baseline. Potassium 2.7, hyponatremia noted, hypophosphatemia noted, liver enzymes elevated, BNP elevated, lipase normal. Markedly elevated anion gap.. Imaging independently interpreted by me and significant for esophageal wall thickening, otherwise no obvious findings.. See radiology read for full review of final results. EKG independently interpreted by me and significant for sinus rhythm, rate of 89, T wave inversions in the inferior leads. 0449 Given patient history, exam and workup, patient's presentation most likely represents nausea vomiting resulting in dehydration, COLE, significant electrolyte derangements. Interactive succussion was had with hospitalist on- call for admission.. Procedures Risk/Benefits of Procedure(s) Were Explained: Yes Critical Care Critical Care Time Critical Care Time: Yes Attestation: On 02/25/25, the high probability of a clinically significant, sudden or life threatening deterioration of the following system(s) required my full and direct attention, intervention and personal management. The time I documented below is in addition to time spent performing reported procedures but includes the following listed in this critical care notation. Total Time Total Critical Care Time: 50
[2025-02-25 04:13] LABS: Albumin Level 5.1 g/dl (3.5-5.0); Hematocrit 43.4 % (42.0-52.0); Hemoglobin 16.1 g/dL (14.1-18.0); Immature Granulocytes % 0.5 %; Mean Corpuscular HGB Conc 37.1 g/dL (31.8-35.4); Mean Corpuscular Hemoglobin 32.7 pg (27.0-31.2); Mean Corpuscular Volume 88.2 fl (80-94); Nucleated Red Blood Cells % 0 %; Platelet Count 117 K/mm3 (142-424); Red Blood Count 4.92 M/mm3 (4.60-6.20); Red Cell Distribution Width-SD 38.3 fL; Sodium 129 mmol/L (136-145); White Blood Count 18.9 K/mm3 (4.8-10.8)
[2025-02-25 04:16] LABS: Alanine Aminotransferase 106 U/L (12-78); Alkaline Phosphatase 122 U/L (38-126); Anion Gap 27.7 mEq/L (5-15); Aspartate Amino Transferase 114 U/L (17-59); Bilirubin,Total 3.2 mg/dl (0.2-1.3); Blood Urea Nitrogen 43 mg/dl (9-20); Carbon Dioxide 30 mmol/L (22.0-30.0); Creatinine Clearance Estimated 56 mL/min (50-200); Creatinine,Serum 1.70 mg/dl (0.66-1.25); Estimated Glomerular Filt Rate 41 ml/min (>60); GFR (African American) 50 ML/MIN (>60)
[2025-02-25 04:17] LABS: Albumin/Globulin Ratio 1.4 (1.1-1.8); Calcium 9.7 mg/dl (8.4-10.2); Globulin 3.6 g/dL (1.3-3.2); Glucose 165 mg/dl (74-100); Total Protein,Serum 8.7 g/dl (6.3-8.2)
--- NOTE | 2025-02-25 04:20 | CT_ITS ---
PROCEDURE INFORMATION: Exam: CT Abdomen And Pelvis With Contrast Exam date and time: 02/25/2025 5:07 AM Age: 59 years old Clinical indication: Nausea and vomiting; Additional info: Nausea vomiting several days TECHNIQUE: Imaging protocol: Computed tomography of the abdomen and pelvis with contrast. Radiation optimization: All CT scans at this facility use at least one of these dose optimization techniques: automated exposure control; mA and/or kV adjustment per patient size (includes targeted exams where dose is matched to clinical indication); or iterative reconstruction. Contrast material: ISOVUE; Contrast volume: 75 ml; Contrast route: IV; COMPARISON: CR XR PELVIS 1-2V 05/30/2022 2:13 AM FINDINGS: Esophagus: Mild mucosal thickening of the esophagus likely representing an esophagitis. Liver: Hepatic steatosis. Gallbladder and biliary ducts: Cholecystectomy. Pancreas: Normal. No ductal dilation. Spleen: Unremarkable. Adrenal glands: Unremarkable. Kidneys and ureters: Normal. No hydronephrosis. Stomach and bowel: Fatty infiltration through the ascending colon may represent sequela of chronic inflammation. No mechanical bowel obstruction. Appendix: No evidence of appendicitis. Intraperitoneal space: No free air. No fluid collection. Vasculature: Unremarkable. No abdominal aortic aneurysm. Lymph nodes: No enlarged lymph nodes. Urinary bladder: Unremarkable as visualized. Reproductive: Unremarkable as visualized. Bones/joints: No acute fracture. Soft tissues: Unremarkable. IMPRESSION: 1. No acute abdominopelvic abnormality. 2. Mild mucosal thickening of the esophagus likely representing an esophagitis, potentially reactive to history of emesis.
[2025-02-25 04:21] LABS: Lipase 254 U/L (23-300)
--- NOTE | 2025-02-25 04:24 | CT_ITS ---
PROCEDURE INFORMATION: Exam: CT Head Without Contrast Exam date and time: 02/25/2025 4:44 AM Age: 59 years old Clinical indication: Dizziness; Additional info: Dizziness n/v TECHNIQUE: Imaging protocol: Computed tomography of the head without contrast. Radiation optimization: All CT scans at this facility use at least one of these dose optimization techniques: automated exposure control; mA and/or kV adjustment per patient size (includes targeted exams where dose is matched to clinical indication); or iterative reconstruction. COMPARISON: CT HEAD/BRAIN WO CON 05/30/2022 1:57 AM FINDINGS: Brain: There is no mass effect, midline shift, hemorrhage, extra-axial fluid collection or acute infarct. Chronic lacunar infarct is noted in the central orin. Cerebral ventricles: No ventriculomegaly. Paranasal sinuses: Mucosal thickening is noted within the right maxillary antrum. Mastoid air cells: Visualized mastoid air cells are well aerated. Orbital cavities: The patient is post bilateral cataract surgery. Bones: Unremarkable. No acute fracture. Soft tissues: Unremarkable. IMPRESSION: No acute intracranial process.
--- NOTE | 2025-02-25 04:24 | CT_ITS ---
PROCEDURE INFORMATION: Exam: CTA Head With Contrast, Arteriography Exam date and time: 02/25/2025 5:04 AM Age: 59 years old Clinical indication: Dizziness and giddiness; Additional info: Several days dizziness TECHNIQUE: Imaging protocol: Computed tomographic angiography of the head with contrast. Exam focused on the arteries. 3D rendering (Not supervised by radiologist): MIP and/or 3D reconstructed images were created by the technologist. Radiation optimization: All CT scans at this facility use at least one of these dose optimization techniques: automated exposure control; mA and/or kV adjustment per patient size (includes targeted exams where dose is matched to clinical indication); or iterative reconstruction. Contrast material: IOSUVE 370; Contrast volume: 80 ml; Contrast route: INTRAVENOUS (IV); COMPARISON: CT HEAD/BRAIN WO CON 02/25/2025 4:44 AM FINDINGS: ANTERIOR CIRCULATION: Right internal carotid artery: There is minor calcific atheromatous plaque at the origin of the right internal carotid artery without significant stenosis. Right middle cerebral artery: No occlusion or significant stenosis. No aneurysm. Right anterior cerebral artery: No occlusion or significant stenosis. No aneurysm. Left internal carotid artery: Moderate calcific atheromatous plaque is noted at the origin of the left internal carotid artery causing less than 40% stenosis. Left middle cerebral artery: No occlusion or significant stenosis. No aneurysm. Left anterior cerebral artery: No occlusion or significant stenosis. No aneurysm. POSTERIOR CIRCULATION: Right vertebral artery: No occlusion or significant stenosis. No aneurysm. Left vertebral artery: No occlusion or significant stenosis. No aneurysm. Basilar artery: No occlusion or significant stenosis. No aneurysm. Right posterior cerebral artery: No occlusion or significant stenosis. No aneurysm. Left posterior cerebral artery: No occlusion or significant stenosis. No aneurysm. Brain: No definite mass, mass effect, or midline shift. Cerebral ventricles: No ventriculomegaly. Paranasal sinuses: Polypoid disease is noted in the floor of the right maxillary antrum with thickening of its reddy indicating chronic disease. Bones/joints: Cervical spondylosis is noted. Soft tissues: Unremarkable. Other findings: Incompletely imaged in the posterior aspect of the right upper lobe is subpleural nodular disease measuring at least 7 mm. Suggest correlation with dedicated nonurgent noncontrast CT of the thorax. There is mild mural edema of the lower cervical and upper thoracic esophagus. Please correlate clinically, consider endoscopy or esophagram. IMPRESSION: Atheromatous plaque in the proximal internal carotid arteries, left greater than right, no significant stenosis on the right, less than 40% stenosis on the left. Upper pulmonary findings warranting dedicated nonurgent CT of the thorax, consider esophagram or endoscopy to further assess mild mural edema of the esophagus.
--- NOTE | 2025-02-25 04:24 | CT_ITS ---
PROCEDURE INFORMATION: Exam: CTA Neck With Contrast Exam date and time: 02/25/2025 5:04 AM Age: 59 years old Clinical indication: Dizziness and giddiness and other: Weight loss -- SOA; Additional info: SOA, dizziness, weight loss TECHNIQUE: Imaging protocol: Computed tomographic angiography of the neck with contrast. Exam focused on the cervical segments of the vasculature. 3D rendering (Not supervised by radiologist): MIP and/or 3D reconstructed images were created by the technologist. Radiation optimization: All CT scans at this facility use at least one of these dose optimization techniques: automated exposure control; mA and/or kV adjustment per patient size (includes targeted exams where dose is matched to clinical indication); or iterative reconstruction. Contrast material: ISOUVE 370; Contrast volume: 80 ml; Contrast route: INTRAVENOUS (IV); COMPARISON: CT CERVICAL SPINE WO CON 05/30/2022 1:57 AM FINDINGS: Right common carotid artery: No stenosis. No dissection or occlusion. Right internal carotid artery: There is minor calcific atheromatous plaque at the origin of the right internal carotid artery without significant stenosis. Right external carotid artery: No occlusion or stenosis of the origin. Left common carotid artery: No stenosis. No dissection or occlusion. Left internal carotid artery: There is calcific atheromatous plaque at the origin of left internal carotid artery causing less than 40% stenosis. Left external carotid artery: No occlusion or stenosis of the origin. Right vertebral artery: No stenosis. No dissection or occlusion. Left vertebral artery: No stenosis. No dissection or occlusion. Soft tissues: Normal. No significant soft tissue swelling. Bones/joints: No acute fracture. Lungs: Incompletely imaged in the posterior aspect of the right upper lobe is subpleural nodular disease measuring at least 7 mm. Suggest correlation with dedicated nonurgent noncontrast CT of the thorax. There is mild mural edema of the lower cervical and upper thoracic esophagus. Please correlate clinically, consider endoscopy or esophagram. IMPRESSION: Calcific atheromatous plaque without significant stenosis. Upper pulmonary findings warranting nonurgent noncontrast CT of the thorax to further assess. Suggest esophagram or endoscopy to further assess mild mural edema of the lower cervical and upper thoracic esophagus. REFERENCES: NASCET CRITERIA. The degree of stenosis in the cervical segment of the internal carotid artery is based on NASCET criteria. Normal is no stenosis. Mild is less than 50% stenosis. Moderate is 50-69% stenosis. Severe is 70% to 99% stenosis. Total occlusion is no detectable patent lumen.
[2025-02-25] MEDS: 0.9 % SODIUM CHLORIDE 1000ML 1,000 ML 999 ML IV (04:27)
[2025-02-25 04:34] LABS: Total Cells Counted 100
[2025-02-25 04:35] LABS: Chloride 74 mmol/L (98-107); Magnesium 1.6 mg/dl (1.6-2.3)
[2025-02-25 04:36] LABS: Potassium 2.7 mmoL/L (3.5-5.1)
[2025-02-25 04:37] LABS: Phosphorous 1.8 mg/dl (2.5-4.5)
--- NOTE | 2025-02-25 04:37 | PC.NURSE ---
lab called with MD guy aware
--- NOTE | 2025-02-25 04:49 | ECG_ITS ---
APPROVED REPORT Exam: Resting ECG HR:89 bpm ECG Measurements Heart Rate 89 AXES MN 140 P 47 QRSd 102 QRS 57 QT 351 T 71 QTc 397 Conclusion SINUS RHYTHM NONSPECIFIC ST & T-WAVE ABNORMALITY BORDERLINE ECG UNCONFIRMED REPORT Electronically signed by : REY BAIG, 02/25/2025 23:08:01
[2025-02-25 04:52] LABS: T4 (Thyroxine) 5.3 ug/dl (5.53-11.0)
[2025-02-25] MEDS: THIAMINE HCL 100 MG in 0.9 % SODIUM CHLORIDE 50 ML 204 MG IV (04:53)
[2025-02-25] MEDS: MAGNESIUM SULFATE IN WATER 2 GM/50 ML PIGGYBACK IV (04:53)
[2025-02-25 04:54] LABS: NT Pro Brain Natriuretic Pep. 718 pg/mL (0-125)
[2025-02-25] MEDS: POTASSIUM CHLORIDE 20MEQ TAB 40 MEQ PO (04:54)
[2025-02-25] MEDS: FOLIC ACID 1MG TABLET 1 MG PO ×2 (04:58→09:38)
[2025-02-25] MEDS: K-PHOS NEUTRAL 250MG TABLET 500 MG PO (05:00)
[2025-02-25 05:05] LABS: VBG HCO3 24.3 mmol/L (23-30); VBG PCO2 36.2 mmol/L (35-51); VBG PH 7.45 mmol/L (7.31-7.41); VBG PO2 38.0 mmol/L (28-40)
[2025-02-25 05:06] LABS: Thyroid Stimulating Hormone 0.98 uIU/mL (0.465-4.68)
[2025-02-25 05:07] LABS: Lactate Venous 2.3 mmol/L (0.4-2.0)
[2025-02-25] MEDS: 0.9 % SODIUM CHLORIDE 50 ML VIAL 40 ML IV (05:15)
[2025-02-25] MEDS: SODIUM CHLORIDE 0.9% 10ML SYR (RAD ONLY) 10 ML IV (05:15)
[2025-02-25] MEDS: IOPAMIDOL-370 (76%);100ML BOTTLE 155 ML IV (05:15)
--- NOTE | 2025-02-25 05:54 | P.HP_ITS ---
<Statement entered by Jaswant Trinh MD - 02/27/25 15:39> Personally evaluated patient and agree with the plan of care as outlined by the TODDLER GUIDE. History of Present Illness *Admission Date: 02/25/25 *Reason for visit:: Nausea vomiting and dizziness *History of present illness: This is a 59-year-old male with a past medical history of hyperlipidemia, essential tremor, prior history of alcohol abuse who presents emergency department today with complaints of nausea vomiting. Patient reports he has been having episodes of nausea vomiting since approximately 10 days ago. Has not been able to keep anything down. Developed dizziness, worse with standing Emergency Department workup notable for multiple electrolyte derangements including hypophosphatemia, hypokalemia, hyponatremia and leukocytosis. He was also noted to have acute kidney injury with creatinine of 1.7. Leukocytosis with a white blood cell count of 18. CT head and CT head neck negative for any acute abnormalities. CT of the abdomen with esophagitis but otherwise unremarkable. Given his continued dizziness and electrolyte derangement it was felt he would benefit from hospitalization. He is admitted to the hospital service at this time. [facility] Disclaimer: The information contained in this section may have been updated after the patient was seen, as this information can be updated by other users. Medical History History of cataract Tremor Hyperlipidemia Surgical History History of cholecystectomy Family History Other COPD (chronic obstructive pulmonary disease) Heart disease History of renal stent Tremor Social History Smoking Status: Never smoker second hand exposure: No alcohol intake: never counseling provided: provider counseling current occupational status: unemployed Travel in the last 8 weeks?: None household members: family housing: house caffeine: No Other Medical History Have you received the Flu Vaccine for this season: No Have you received the Pneumonia Vaccine: No Review of Systems Review of Systems Review of systems:: pertinent systems reviewed and negative unless documented below Review of systems (narrative): Negative except for HPI Meds Home Medications and Allergies Home Medications ?Medication ?Instructions ?Recorded ?Confirmed ?Type propranolol 20 mg tablet 40 mg (2 x 20 mg) PO TID #18 0 tabs 12/17/24 Rx atorvastatin 20 mg tablet See Rx Instructions .Route 0 01/11/25 Rx .COMPLEX #90 tabs trazodone 100 mg tablet 100 mg PO HS #90 tabs Rx New Prescriptions to Start Prescriptions: Allergies Allergy/AdvReac Type Severity Reaction Status Date / Time No Known Allergies Allergy Verified 08/16/24 09:04 Exam Data for Last 24 hours Vital signs and Labs for Last 24 Hours: Temp Pulse Resp BP Pulse Ox O2 Del Method 98.1 F 100 H 16 129/91 H 98 Room Air 02/25/25 04:00 02/25/25 05:30 02/25/25 04:30 02/25/25 04:30 02/25/25 05:30 02/25/25 04:00 Laboratory Results - last 24 hr 02/25/25 03:58: WBC 18.9 H, RBC 4.92, Hgb 16.1, Hct 43.4, MCV 88.2, MCH 32.7 H, MCHC 37.1 H, RDW 11.9, Plt Count 117 L, MPV 12.5 H, Neut % (Auto) 84.6 H, Lymph % (Auto) 4.8 L, Cottle % (Auto) 9.8 H, Eos % (Auto) 0.0 L, Baso % (Auto) 0.3, Neut # (Auto) 16.0 H, Lymph # (Auto) 0.9, Cottle # (Auto) 1.9 H, Eos # (Auto) 0.0, Baso # (Auto) 0.1, Total Counted 100, Neutrophils % (Manual) 78 H, Band Neutrophils % 13 H, Lymphocytes % (Manual) 4 L, Monocytes % (Manual) 5, Sodium 129 L, Potassium 2.7 L*, Chloride 74 L, Carbon Dioxide 30, Anion Gap 27.7 H, BUN 43 H, Creatinine 1.70 H, Estimated Creat Clear 56, Estimated GFR 41 L, Est GFR ( Amer) 50 L, Glucose 165 H, Calcium 9.7, Phosphorus 1.8 L, Magnesium 1.6, Total Bilirubin 3.2 H, AST 114 H, ALT 106 H, Alkaline Phosphatase 122, NT -Pro-B Natriuret Pep 718 H, Total Protein 8.7 H D, Albumin 5.1 H, Globulin 3.6 H , Albumin/Globulin Ratio 1.4, Lipase 254, TSH 0.98, Thyroxine (T4) 5.3 L, Plasma/Serum Alcohol < 10 02/25/25 04:55: VBG pH 7.45 H, VBG pCO2 36.2, VBG pO2 38.0, VBG HCO3 24.3, VBG Total CO2 25.4, VBG O2 Saturation 73.5 H, VBG Base Excess 0.2, VBG Lactic Acid 2.3 H I & O for Last 24 hours: Intake & Output 02/22/25 02/23/25 02/24/25 02/25/25 23:59 23:59 23:59 23:59 Intake Total 1101 / 1101 Balance 1101 / 1101 Weight 83.915 kg Constitutional Constitutional: no acute distress *Routine HEENT Exam Head: Present normocephalic Eye: Present EOMI and PERRL ENT: Present mucous membranes moist *Routine Neck Exam Neck: Present supple; Absent lymphadenopathy *Routine Respiratory Exam Respiratory: Present CTA bilaterally *Routine Cardiovascular Exam Cardiovascular: Present RRR *Routine Abdominal Exam Abdominal: Present soft and normoactive bowel sounds; Absent tenderness *Routine Rectal Exam Rectal:: deferred *Routine Genitalia Exam Genitalia:: deferred *Routine Extremities Exam Extremities: Absent cyanosis, clubbing or edema *Routine Skin Exam Skin: Present warm; Absent rash *Routine Neurological Exam Neurological: Present alert and oriented X3 Assessment and Plan *Assessment and plan (1) Acute hyponatremia: Status: Acute Category: Medical Code(s): E87.1 - Hypo-osmolality and hyponatremia (2) Leukocytosis: Status: Acute Category: Medical Code(s): D72.829 - Elevated white blood cell count, unspecified (3) Hypophosphatemia: Status: Acute Category: Medical Code(s): E83.39 - Other disorders of phosphorus metabolism (4) Acute hypokalemia: Status: Acute Category: Medical Code(s): E87.6 - Hypokalemia (5) COLE (acute kidney injury): Status: Acute Category: Medical Code(s): N17.9 - Acute kidney failure, unspecified (6) Hyperlipidemia: Status: Chronic Category: Medical Code(s): E78.5 - Hyperlipidemia, unspecified Plan #Intractable nausea and vomiting Reports persistent vomiting approximately 10 days. Has developed dizziness and feels unsteady on his feet. CT abdomen pelvis negative. Continue antiemetics N.p.o. for now #COLE Creatinine 1.7. Prerenal injury given significant vomiting over the last 10 days. Continue maintenance IV fluids #Leukocytosis Possibly reactive. No evidence of acute abnormality on CT imaging of the abdomen. Status postcholecystectomy. Elevated bilirubin of 3.4 but does not appear to have choledocholithiasis at this time. Will defer antibiotic therapy at this time Urinalysis pending #Hypokalemia Hypophosphatemia Hypomagnesemia As needed replacement. Repeat labs at noon today #Hypertension #Hyperlipidemia Continue home medications once reconciled
[2025-02-25 06:52] LABS: Microscopic, Urine URINE MICROSCOPIC (MICROSCOPIC)
[2025-02-25] MEDS: 0.9 % SODIUM CHLORIDE 1000ML 1,000 ML 100 ML IV ×2 (06:54→16:57)
[2025-02-25 06:55] LABS: Glucose,Urine (UA) Negative (Negative); Ketones,Urine 1+ (Negative); Leukocyte Esterase,Urine Negative (Negative); PH,Urine 5.5 (5.0-8.5); Protein,Urine 2+ (Negative); Specific Gravity, Urine 1.015 (1.005-1.030); Urobilinogen,Urine 4.0 EU/dl (0.2)
[2025-02-25 06:59] LABS: Bilirubin,Urine 3+ (Negative)
[2025-02-25 07:00] LABS: Color,Urine Amber (Yellow)
[2025-02-25 07:07] LABS: Barbiturates Screen,Urine Negative ng/ml (<200)
[2025-02-25 07:08] LABS: Benzodiazepines Screen,Urine Positive ng/ml (<200)
[2025-02-25 07:09] LABS: Amphetamine/Metha Screen,Urine Negative ng/ml (<1000)
[2025-02-25 07:11] LABS: Methadone Screen,Urine Negative ng/ml (<300); Opiate Screen,Urine Negative ng/ml (<300)
[2025-02-25 07:12] LABS: Phencyclidine Screen,Urine Negative ng/ml (<25)
[2025-02-25 07:16] LABS: Bacteria,Urine 1+ /lpf; Squamous Epithelial Cell,Urine Occasional #/hpf (0-5); WBC,Urine Occasional #/hpf (0-3)
[2025-02-25 07:17] LABS: Mucus,Urine Trace /lpf
--- NOTE | 2025-02-25 07:39 | HMH.PHAINT1 ---
Pharmacy Intervention Comments: Home medication list verified using list from outpatient pharmacy
[2025-02-25 08:33] LABS: Hematocrit 41.3 % (42.0-52.0); Hemoglobin 14.8 g/dL (14.1-18.0); Immature Granulocytes % 0.4 %; Mean Corpuscular HGB Conc 35.8 g/dL (31.8-35.4); Mean Corpuscular Hemoglobin 31.6 pg (27.0-31.2); Mean Corpuscular Volume 88.2 fl (80-94); Nucleated Red Blood Cells % 0 %; Platelet Count 107 K/mm3 (142-424); Red Blood Count 4.68 M/mm3 (4.60-6.20); Red Cell Distribution Width-SD 39.1 fL; White Blood Count 17.8 K/mm3 (4.8-10.8)
[2025-02-25 09:07] LABS: Reflex Lactic Add Lactic Reflex
[2025-02-25 09:15] LABS: Chloride 80 mmol/L (98-107)
[2025-02-25 09:16] LABS: Albumin Level 4.5 g/dl (3.5-5.0); Sodium 126 mmol/L (136-145)
[2025-02-25 09:18] LABS: Alanine Aminotransferase 91 U/L (12-78); Anion Gap 24.9 mEq/L (5-15); Aspartate Amino Transferase 93 U/L (17-59); Blood Urea Nitrogen 38 mg/dl (9-20); Carbon Dioxide 24 mmol/L (22.0-30.0); Creatinine Clearance Estimated 67 mL/min (50-200); Creatinine,Serum 1.40 mg/dl (0.66-1.25); Estimated Glomerular Filt Rate 52 ml/min (>60); GFR (African American) 63 ML/MIN (>60); Potassium 2.9 mmoL/L (3.5-5.1)
[2025-02-25 09:19] LABS: Albumin/Globulin Ratio 1.5 (1.1-1.8); Alkaline Phosphatase 120 U/L (38-126); Bilirubin,Total 2.9 mg/dl (0.2-1.3); Calcium 8.7 mg/dl (8.4-10.2); Globulin 3.1 g/dL (1.3-3.2); Glucose 154 mg/dl (74-100); Total Protein,Serum 7.6 g/dl (6.3-8.2)
[2025-02-25] MEDS: PANTOPRAZOLE 40MG VIAL 40 MG IV ×2 (09:33→20:22)
[2025-02-25] MEDS: PROPRANOLOL 20MG TAB 40 MG PO ×3 (09:33→20:22)
[2025-02-25] MEDS: SODIUM CHLORIDE 0.9% 10ML VIAL 10 ML IV (09:33)
[2025-02-25 09:48] LABS: Lactic Acid Follow Up (RFLX 1) 1.4 mmol/L (0.7-2.1)
--- NOTE | 2025-02-25 10:14 | EXP.EVENT.NO ---
Mr. Bowling is a 59-year-old male who was admitted early this morning for dehydration, intractable N/V, leukocytosis, hypokalemia, hyponatremia, and COLE. Patient does state that his father recently passed and he has been struggling with that. He does deny alcohol or drug use, UDS was positive for benzos. When discussed with the patient he denies any use. Patient is receiving normal saline at 100 mL/H for rehydration, advancing diet to clear liquids. Will continue to advance as tolerated. Patient does state that he feels better, he has not vomited since admission. He does state that he is having some nausea, antiemetics ordered as needed. Leukocytosis of 17.8 today. Blood cultures drawn, Zosyn every 6 hours started empirically. No focal source of infection noted at this time. Orthostatic blood pressures positive. Patient continues to require inpatient care at this time.
--- NOTE | 2025-02-25 10:41 | XR_ITS ---
FINAL REPORT CLINICAL HISTORY: sepsis FINDINGS: A single PA view of the chest was obtained. There is no prior exam for comparison. The cardiac and mediastinal silhouettes are within normal limits. The lungs are clear. There is no effusion or pneumothorax. IMPRESSION: No radiographic evidence of acute cardiac or pulmonary disease on this single view of the chest. Reviewed, Interpreted and Dictated by Joy Guerra MD Transcribed by Sheryl Reed Authenticated and [facility]
[2025-02-25 11:38] LABS: Hemoglobin A1C 5.3 % (4.0-6.0)
[2025-02-25] MEDS: PROMETHAZINE HCL 25MG/ML 1ML VIAL 25 MG IV (13:06)
[2025-02-25] MEDS: SODIUM CHLORIDE 0.9% 25ML BAG 25 ML IV (13:06)
[2025-02-25 15:05] LABS: Anion Gap 21.0 mEq/L (5-15); Blood Urea Nitrogen 36 mg/dl (9-20); Calcium 8.2 mg/dl (8.4-10.2); Carbon Dioxide 28 mmol/L (22.0-30.0); Chloride 80 mmol/L (98-107); Creatinine Clearance Estimated 73 mL/min (50-200); Creatinine,Serum 1.30 mg/dl (0.66-1.25); Estimated Glomerular Filt Rate 57 ml/min (>60); GFR (African American) 68 ML/MIN (>60); Glucose 116 mg/dl (74-100); Magnesium 2.4 mg/dl (1.6-2.3); Sodium 126 mmol/L (136-145)
[2025-02-25 15:11] LABS: Phosphorous 1.9 mg/dl (2.5-4.5); Potassium 3.0 mmoL/L (3.5-5.1)
[2025-02-25 15:13] LABS: C-Reactive Protein 31.6 mg/L (0-4)
[2025-02-25 15:23] LABS: Procalcitonin 0.238 ng/mL (0.0-2.0)
--- NOTE | 2025-02-25 17:33 | PC.NURSE ---
Pt is A&Ox4. Vital signs stable tolerating room air. IV fluids infusing. IV potassium given today. Pt complains of nausea and vomiting. PRN medications given with relief. SCDS in place. Pt assist x1 to bathroom. Pt resting comfortably in bed with no further needs voiced at this time. Call light within reach.
[2025-02-25] MEDS: PIPERACILLIN/TAZO 3.375 GM in 0.9 % SODIUM CHLORIDE 50 ML IV (18:00)
[2025-02-25] MEDS: ATORVASTATIN 20MG TABLET 20 MG PO (20:22)
[2025-02-25] MEDS: TRAZODONE 50MG TABLET 100 MG PO (20:22)
[2025-02-25 21:35] LABS: Anion Gap 17.5 mEq/L (5-15); Blood Urea Nitrogen 32 mg/dl (9-20); Calcium 8.2 mg/dl (8.4-10.2); Carbon Dioxide 30 mmol/L (22.0-30.0); Chloride 82 mmol/L (98-107); Creatinine Clearance Estimated 63 mL/min (50-200); Creatinine,Serum 1.50 mg/dl (0.66-1.25); Estimated Glomerular Filt Rate 48 ml/min (>60); GFR (African American) 58 ML/MIN (>60); Glucose 101 mg/dl (74-100); Potassium 3.5 mmoL/L (3.5-5.1); Sodium 126 mmol/L (136-145)
[2025-02-26] VITALS (9 sets, daily range): BP systolic 119–139; BP diastolic 63–78; PULSE 49–82; RESP 14–17; TEMP 36.5–36.9; O2SAT 96–99
[2025-02-26] MEDS: POTASSIUM CHLORIDE 20MEQ TAB 40 MEQ PO ×2 (00:19→03:25)
[2025-02-26] MEDS: PIPERACILLIN/TAZO 3.375 GM in 0.9 % SODIUM CHLORIDE 50 ML IV ×4 (00:19→19:00)
[2025-02-26] MEDS: 0.9 % SODIUM CHLORIDE 1000ML 1,000 ML 100 ML IV (03:25)
--- NOTE | 2025-02-26 04:26 | PC.NURSE ---
Pt A&OX4 and has tolerated room air. Lung sounds clear and bowel sounds active. He has denied and N/V. He has ambulated with standby assist. Potassium replaced per protocol. IV fluids infusing. No complaints at this time, call light within reach.
[2025-02-26 06:39] LABS: Hematocrit 34.1 % (42.0-52.0); Immature Granulocytes % 0.5 %; Mean Corpuscular HGB Conc 36.4 g/dL (31.8-35.4); Mean Corpuscular Hemoglobin 32.6 pg (27.0-31.2); Mean Corpuscular Volume 89.7 fl (80-94); Nucleated Red Blood Cells % 0 %; Platelet Count 85 K/mm3 (142-424); Red Blood Count 3.80 M/mm3 (4.60-6.20); Red Cell Distribution Width-SD 39.7 fL; White Blood Count 12.2 K/mm3 (4.8-10.8)
[2025-02-26 06:47] LABS: Hemoglobin 12.4 g/dL (14.1-18.0)
[2025-02-26 06:54] LABS: Chloride 92 mmol/L (98-107); Potassium 3.1 mmoL/L (3.5-5.1); Sodium 130 mmol/L (136-145)
[2025-02-26 06:56] LABS: Blood Urea Nitrogen 26 mg/dl (9-20); Creatinine Clearance Estimated 69 mL/min (50-200); Creatinine,Serum 1.20 mg/dl (0.66-1.25); Estimated Glomerular Filt Rate 62 ml/min (>60); GFR (African American) 75 ML/MIN (>60)
[2025-02-26 06:57] LABS: Anion Gap 14.1 mEq/L (5-15); Calcium 7.5 mg/dl (8.4-10.2); Carbon Dioxide 27 mmol/L (22.0-30.0); Glucose 113 mg/dl (74-100); Magnesium 2.1 mg/dl (1.6-2.3)
[2025-02-26 07:10] LABS: Phosphorous 0.9 mg/dl (2.5-4.5)
[2025-02-26] MEDS: FOLIC ACID 1MG TABLET 1 MG PO (08:56)
[2025-02-26] MEDS: SODIUM CHLORIDE 0.9% 10ML VIAL 10 ML IV ×2 (08:56→20:54)
[2025-02-26] MEDS: PANTOPRAZOLE 40MG VIAL 40 MG IV ×2 (08:56→20:54)
[2025-02-26] MEDS: K-PHOS NEUTRAL 250MG TABLET 500 MG PO ×2 (12:02→20:54)
[2025-02-26 13:28] LABS: 25-OH Vitamin D, Total 22.7 ng/mL (30-100)
[2025-02-26 14:23] LABS: Chloride 97 mmol/L (98-107)
[2025-02-26 14:24] LABS: Sodium 131 mmol/L (136-145)
[2025-02-26 14:27] LABS: Anion Gap 10.9 mEq/L (5-15); Blood Urea Nitrogen 23 mg/dl (9-20); Calcium 7.5 mg/dl (8.4-10.2); Carbon Dioxide 26 mmol/L (22.0-30.0); Creatinine Clearance Estimated 75 mL/min (50-200); Creatinine,Serum 1.10 mg/dl (0.66-1.25); Estimated Glomerular Filt Rate 69 ml/min (>60); GFR (African American) 83 ML/MIN (>60); Glucose 116 mg/dl (74-100)
[2025-02-26 14:34] LABS: Potassium 2.9 mmoL/L (3.5-5.1)
[2025-02-26 14:35] LABS: Hematocrit 33.8 % (42.0-52.0); Hemoglobin 11.8 g/dL (14.1-18.0); Immature Granulocytes % 0.5 %; Mean Corpuscular HGB Conc 34.9 g/dL (31.8-35.4); Mean Corpuscular Hemoglobin 31.8 pg (27.0-31.2); Mean Corpuscular Volume 91.1 fl (80-94); Nucleated Red Blood Cells % 0 %; Platelet Count 82 K/mm3 (142-424); Red Blood Count 3.71 M/mm3 (4.60-6.20); Red Cell Distribution Width-SD 41.5 fL; White Blood Count 9.9 K/mm3 (4.8-10.8)
[2025-02-26 15:58] LABS: RBC Morphology Normal; Total Cells Counted 100
--- NOTE | 2025-02-26 16:28 | EXP.BH.CONS ---
History of Present Illness *Admission Date: 02/25/25 *History of present illness: This is a 59-year-old male with a past medical history of hyperlipidemia, essential tremor, prior history of alcohol abuse who presents emergency department today with complaints of nausea vomiting. Patient reports he has been having episodes of nausea vomiting since approximately 10 days ago. Has not been able to keep anything down. Developed dizziness, worse with standing Emergency Department workup notable for multiple electrolyte derangements including hypophosphatemia, hypokalemia, hyponatremia and leukocytosis. He was also noted to have acute kidney injury with creatinine of 1.7. Leukocytosis with a white blood cell count of 18. CT head and CT head neck negative for any acute abnormalities. CT of the abdomen with esophagitis but otherwise unremarkable. Given his continued dizziness and electrolyte derangement it was felt he would benefit from hospitalization. He is admitted to the hospital service at this time. Per referral see above information. Patient (goes by [facility]) was seen inpatient by this provider for symptoms related to depression and complicated grief. Patient states he has had significant life changes in last 8 years, his parents both became ill and he quit his job in [place] and moved in to help care for them. His mom had severe dementia, she a couple of years after he moved in. He then cared for his dad who had multiple health issues including heart condition and COPD. States dad was on 22 pills a day . Made it his job to provide care and get dad to appointments. States they never went anywhere except doctor as travel with dad was difficult. \ He states in [address] probably [address] 4 people He had to stop going to voodoo and watches services on line. His dad recently on February 08. He states since of his dad he has felt very lost and is not sure what he should be doing now. Endorses feeling overwhelmed with all of the decisions to be made. Especially concerned over pile of bills he needs to take care of. Does have one brother who lives in [place] who is supportive but was unable to provide much help because his brother's has a lot of health problems. He has a daughter and grandchild in [place] who visit a couple times yearly. He states he only drinks occasionally and does not use any elicit drugs. 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 Admits that after his dad he did not take care of himself. Says he would get up eat breakfast but is not sure what he did after that describes difficulty finding purpose. He is hospitalized for decompensation and COLE (which is improving) possibly related to dehydration. Patient has a history of ETOH abuse in record but states he was not drinking heavily, feels deterioration of condition was because of not taking care of myself he did have electrolyte imbalances on admission. Exhibits acute grief response; questioning, states dad was in hospice he was with him and he passed before patient expected him to. Difficulty processing next steps. Exhibits symptoms consistent with depression; loss of interest in activities, isolating, guilt, loss of concentration, decreased appetite. It appears these symptoms may have began when he started taking care of his parents. He denies any thoughts of self-harm, has no desire or thought of ending his life. He does express and interest in going back to voodoo and did discuss this with preacher at . Today we discussed at length that grief has no timeline and he needs to take things slow. Discussed prioritizing things and breaking them down into small steps. Discussed reaching out for help. Discussed importance of socialization and human contact. Discussed starting small with going outside or to familiar places. Discussed how grief is fluid and changes over time as it goes through stages. We did discuss that alcohol can make depression worse and can contribute to decompensation of physical health. Offered to help get appointment with behavioral health when he leaves hospital he is interested but would like to do this on his own once he discharges. This provider will connect with PCP he will see after discharge to have them assist with getting appointment if he desires. At end of encounter patient acknowledges he does feel somewhat lifted being able to talk about things. Nurse confirms he is allowed to walk on unit, he is encouraged to do this. [facility] Disclaimer: The information contained in this section may have been updated after the patient was seen, as this information can be updated by other users. Medical History History of cataract Tremor Hyperlipidemia Surgical History History of cholecystectomy Family History Other COPD (chronic obstructive pulmonary disease) Heart disease History of renal stent Tremor Social History (Updated 02/25/25 @ 06:48 by Norma Verdin RN) Smoking Status: Never smoker second hand exposure: No alcohol intake: never counseling provided: provider counseling current occupational status: unemployed Travel in the last 8 weeks?: None household members: family housing: house caffeine: No Contact w/someone who lives/traveled outside [place] past 30 days?: No Exposure to someone with infectious disease in past 14 days?: No Meds Home Medications and Allergies Home Medications ?Medication ?Instructions ?Recorded ?Confirmed ?Type trazodone 100 mg tablet 100 mg PO HS #90 tabs 01/16/25 02/25/25 Rx atorvastatin 20 mg tablet 20 mg PO HS 02/25/25 02/25/25 History cholecalciferol (vitamin D3) 25 25 mcg PO DAILY 30 days #30 tabs 02/26/25 Rx mcg (1,000 unit) tablet lorazepam 0.5 mg tablet 0.5 mg PO BIDP PRN anxiety 3 days 02/26/25 Rx #6 tabs potassium chloride 20 mEq 40 meq (2 x 20 mEq) PO DAILY 30 02/26/25 Rx tablet,extended days #60 tabs release(part/cryst) (Klor-Con M) propranolol 20 mg tablet 40 mg (2 x 20 mg) PO DAILY 30 days 02/26/25 Rx #60 tabs sodium di- and 2 tab PO BID 7 days #28 tabs 02/26/25 Rx monophosphate-potassium phos monobasic 250 mg tablet (Phospha Neutral) New Prescriptions to Start Prescriptions: cholecalciferol (vitamin D3) Kaykay Fernando lorazepam Kaykay Fernando potassium chloride [Klor-Con M20] Kaykay Fernando propranolol Kaykay Fernando sod phos di, mono-K phos mono [Phospha 250 Neutral] Kaykay Fernando Allergies Allergy/AdvReac Type Severity Reaction Status Date / Time No Known Allergies Allergy Verified 08/16/24 09:04 Mental Status Mental Status:: Speech (WNL), Psychomotor (WNL) and Suicidal/Homicidal Ideation (denies) Comment:: General Examination: ? General appearance: alert, thin and in no acute ? Neurologic: gait and stance (unable to assess pt in hospital bed) - no abnormal movements noted. ? Psych: mood is depressed (but lifts as interview proceeds) affect is appropriate mood appears congruent thought process is linear and goal directed no SI/HI speech is normal - no perceptual disturbances noted.
--- NOTE | 2025-02-26 17:20 | P.DS_ITS ---
<Statement entered by Jaswant Trinh MD - 02/27/25 10:14> Patient was monitored overnight to ensure potassium repletion with improvement. Patient tolerated p.o. intake, looking forward to going home today. No acute concerns. Asymptomatic. Behavioral health consulted, offered outpatient appointments. At this time, patient would like to make an appointment of his own as needed. Discharged in stable condition. General Admission date:: 02/25/25 Discharge date: 02/26/25 HPI HPI HPI: This is a 59-year-old male with a past medical history of hyperlipidemia, essential tremor, prior history of alcohol abuse who presents emergency department today with complaints of nausea vomiting. Patient reports he has been having episodes of nausea vomiting since approximately 10 days ago. Has not been able to keep anything down. Developed dizziness, worse with standing Emergency Department workup notable for multiple electrolyte derangements including hypophosphatemia, hypokalemia, hyponatremia and leukocytosis. He was also noted to have acute kidney injury with creatinine of 1.7. Leukocytosis with a white blood cell count of 18. CT head and CT head neck negative for any acute abnormalities. CT of the abdomen with esophagitis but otherwise unremarkable. Given his continued dizziness and electrolyte derangement it was felt he would benefit from hospitalization. He is admitted to the hospital service at this time. Hospital Course Hospital Course Hospital Course: Mr. Bowling is a 59-year-old male who presented to the emergency department via EMS on 02/25/2025 with complaints of weakness, nausea, vomiting for multiple days. He had a recent life stressor of his father passing on 02/08 and on 02/15. He states since then he has had severe anxiety and inability to eat. Workup in the ED was significant for hypokalemia, hyponatremia, hypophosphatemia. Patient denies alcohol or drug use. Patient was admitted to the hospital for further monitoring of electrolyte imbalances. Patient did have leukocytosis on admission, blood cultures were drawn, no growth after 24 hours. Patient did receive IV Zosyn every 6 hours empirically during admission. Will not discharge patient home on antibiotics due to no notable bacteremia or source of infection. Patient's potassium and phosphorus were repleted, IV fluids given. Patient's vitamin D also low. Antiemetics given for nausea and vomiting. Patient able to tolerate p.o. diet for 24 hours. Patient states that he feels better but does have increased anxiety. Behavioral health did see patient during admission, note pending. Patient is agreeable to follow-up with behavioral health as an outpatient. Will discharge patient home with Ativan 0.5 mg twice daily as needed for anxiety. Will also discharge patient home with p.o. potassium, vitamin D, and phosphorus due to continued low levels. Patient should follow-up with PCP within 3 days for repeat labs. Discussed with patient, he is agreeable to the plan. Exam Data for Last 24 hours Vital signs and Labs for Last 24 Hours: Temp Pulse Resp BP Pulse Ox O2 Del Method 97.8 F 82 14 137/63 97 Room Air 02/26/25 16:00 02/26/25 16:00 02/26/25 16:00 02/26/25 16:00 02/26/25 16:00 02/26/25 16:00 Laboratory Results - last 24 hr 02/25/25 21:15: Sodium 126 L, Potassium 3.5, Chloride 82 L, Carbon Dioxide 30, Anion Gap 17.5 H, BUN 32 H, Creatinine 1.50 H, Estimated Creat Clear 63, Estimated GFR 48 L, Est GFR ( Amer) 58 L, Glucose 101 H, Calcium 8.2 L 02/26/25 05:41: WBC 12.2 H D, RBC 3.80 L, Hgb 12.4 L D, Hct 34.1 L, MCV 89.7, MCH 32.6 H, MCHC 36.4 H, RDW 12.2, Plt Count 85 L, MPV 13.8 H, Neut % (Auto) 84.5 H, Lymph % (Auto) 5.8 L, Garza % (Auto) 9.0, Eos % (Auto) 0.0 L, Baso % (Auto) 0.2, Neut # (Auto) 10.3 H, Lymph # (Auto) 0.7, Garza # (Auto) 1.1 H, Eos # (Auto) 0.0, Baso # (Auto) 0.0, Sodium 130 L, Potassium 3.1 L, Chloride 92 L, Carbon Dioxide 27, Anion Gap 14.1, BUN 26 H, Creatinine 1.20, Estimated Creat Clear 69, Estimated GFR 62, Est GFR ( Amer) 75 D, Glucose 113 H, Calcium 7.5 L, Phosphorus 0.9 L D, Magnesium 2.1 D 02/26/25 10:22: 25-OH Vitamin D Total 22.7 L 02/26/25 14:06: WBC 9.9, RBC 3.71 L, Hgb 11.8 L, Hct 33.8 L, MCV 91.1, MCH 31.8 H, MCHC 34.9, RDW 12.3, Plt Count 82 L, MPV 13.5 H, Neut % (Auto) 85.7 H, Lymph % (Auto) 5.3 L, Garza % (Auto) 8.4, Eos % (Auto) 0.0 L, Baso % (Auto) 0.1, Neut # (Auto) 8.5 H, Lymph # (Auto) 0.5 L, Garza # (Auto) 0.8, Eos # (Auto) 0.0, Baso # (Auto) 0.0, Total Counted 100, Neutrophils % (Manual) 86 H, Lymphocytes % (Manual) 12, Monocytes % (Manual) 2, Platelet Estimate Moderate decrease, RBC Morphology Normal, Sodium 131 L, Potassium 2.9 L*, Chloride 97 L, Carbon Dioxide 26, Anion Gap 10.9, BUN 23 H, Creatinine 1.10, Estimated Creat Clear 75, Estimated GFR 69, Est GFR ( Amer) 83, Glucose 116 H, Calcium 7.5 L I & O for Last 24 hours: Intake & Output 02/23/25 02/24/25 02/25/25 02/26/25 23:59 23:59 23:59 23:59 Intake Total 2951 / 3251 2570 / 2570 Output Total 0 / 0 600 / 600 Balance 2951 / 3251 1969 / 1969 Weight 83.91 kg 73.301 kg Microbiology Reports for the Last 24 Hours: Microbiology 02/25/25 12:14 Blood Blood Culture - Preliminary NO GROWTH AFTER 24 HOURS 02/25/25 12:19 Blood Blood Culture - Preliminary NO GROWTH AFTER 24 HOURS Constitutional Constitutional: no acute distress, thin and somnolent *Routine HEENT Exam Head: Present normocephalic Eye: Present EOMI ENT: Present mucous membranes moist *Routine Neck Exam Neck: Present supple and full ROM *Routine Respiratory Exam Respiratory: Present CTA bilaterally, normal respiratory effort, able to speak in complete sentences and symmetric chest movement *Routine Cardiovascular Exam Cardiovascular: Present RRR, Normal S1 and Normal S2 *Routine Abdominal Exam Abdominal: Present soft and normoactive bowel sounds; Absent tenderness or distended *Routine Extremities Exam Extremities: Present full ROM, pulses intact and normal capillary refill; Absent edema *Routine Skin Exam Skin: Present intact and dry; Absent erythema or rash *Routine Neurological Exam Neurological: Present alert, oriented X3 and normal speech Routine Psychiatric Exam Psychiatric: Present cooperative and depressed; Absent suicidal ideation Results Data Completed and Pending Labs on day of discharge: Labs from last 24 hours 02/26/25 02/26/25 02/26/25 14:06 10:22 05:41 WBC 9.9 12.2 H D RBC 3.71 L 3.80 L Hgb 11.8 L 12.4 L D Hct 33.8 L 34.1 L MCV 91.1 89.7 MCH 31.8 H 32.6 H MCHC 34.9 36.4 H RDW 12.3 12.2 Plt Count 82 L 85 L MPV 13.5 H 13.8 H Neut % (Auto) 85.7 H 84.5 H Lymph % (Auto) 5.3 L 5.8 L Garza % (Auto) 8.4 9.0 Eos % (Auto) 0.0 L 0.0 L Baso % (Auto) 0.1 0.2 Neut # (Auto) 8.5 H 10.3 H Lymph # (Auto) 0.5 L 0.7 Garza # (Auto) 0.8 1.1 H Eos # (Auto) 0.0 0.0 Baso # (Auto) 0.0 0.0 Total Counted 100 Neutrophils % (Manual) 86 H Lymphocytes % (Manual) 12 Monocytes % (Manual) 2 Platelet Estimate Moderate decrease RBC Morphology Normal Sodium 131 L 130 L Potassium 2.9 L* 3.1 L Chloride 97 L 92 L Carbon Dioxide 26 27 Anion Gap 10.9 14.1 BUN 23 H 26 H Creatinine 1.10 1.20 Estimated Creat Clear 75 69 Estimated GFR 69 62 Est GFR ( Amer) 83 75 D Glucose 116 H 113 H Calcium 7.5 L 7.5 L Phosphorus 0.9 L D Magnesium 2.1 D 25-OH Vitamin D Total 22.7 L 02/25/25 21:15 WBC RBC Hgb Hct MCV MCH MCHC RDW Plt Count MPV Neut % (Auto) Lymph % (Auto) Garza % (Auto) Eos % (Auto) Baso % (Auto) Neut # (Auto) Lymph # (Auto) Garza # (Auto) Eos # (Auto) Baso # (Auto) Total Counted Neutrophils % (Manual) Lymphocytes % (Manual) Monocytes % (Manual) Platelet Estimate RBC Morphology Sodium 126 L Potassium 3.5 Chloride 82 L Carbon Dioxide 30 Anion Gap 17.5 H BUN 32 H Creatinine 1.50 H Estimated Creat Clear 63 Estimated GFR 48 L Est GFR ( Amer) 58 L Glucose 101 H Calcium 8.2 L Phosphorus Magnesium 25-OH Vitamin D Total Preliminary micro results at discharge 02/25/25 12:14 Blood Culture - Preliminary Blood NO GROWTH AFTER 24 HOURS 02/25/25 12:19 Blood Culture - Preliminary Blood NO GROWTH AFTER 24 HOURS DS: Diagnosis Discharge Diagnosis (1) Acute hyponatremia: Status: Acute Code(s): E87.1 - Hypo-osmolality and hyponatremia (2) Leukocytosis: Status: Acute Code(s): D72.829 - Elevated white blood cell count, unspecified (3) Hypophosphatemia: Status: Acute Code(s): E83.39 - Other disorders of phosphorus metabolism (4) Acute hypokalemia: Status: Acute Code(s): E87.6 - Hypokalemia (5) COLE (acute kidney injury): Status: Acute Code(s): N17.9 - Acute kidney failure, unspecified (6) Hyperlipidemia: Status: Chronic Code(s): E78.5 - Hyperlipidemia, unspecified Meds Home Medications and Allergies Home Medications ?Medication ?Instructions ?Recorded ?Confirmed ?Type trazodone 100 mg tablet 100 mg PO HS #90 tabs 02/25/25 Rx atorvastatin 20 mg tablet 20 mg PO HS 02/25/25 5 History cholecalciferol (vitamin D3) 25 25 mcg PO DAILY 30 day s #30 tabs 02/26/25 Rx mcg (1,000 unit) tablet lorazepam 0.5 mg tablet 0.5 mg PO BIDP PRN anxiety 3 days 02/26/25 Rx #6 tabs potassium chloride 20 mEq 40 meq (2 x 20 mEq) PO DAILY 30 02/26/25 Rx tablet,extended days #60 tabs release(part/cryst) (Klor-Con M) propranolol 20 mg tablet 40 mg (2 x 20 mg) PO DAILY 3 0 days 02/26/25 Rx #60 tabs sodium di- and 2 tab PO BID 7 days #28 tabs 02/26/25 Rx monophosphate-potassium phos monobasic 250 mg tablet (Phospha Neutral) New Prescriptions to Start Prescriptions: cholecalciferol (vitamin D3) Kaykay Fernando lorazepam Kaykay Fernando potassium chloride [Klor-Con M20] Kaykay Fernando propranolol Kaykay Fernando sod phos di, mono-K phos mono [Phospha 250 Neutral] Kaykay Fernando Allergies Allergy/AdvReac Type Severity Reaction Status Date / Time No Known Allergies Allergy Verified 08/16/24 09:04 Discharge Plan Disposition Patient Disposition: Home, Self-Care Condition: Fair Follow up Plan Follow up with: Chase Moody MD [Staff Physician, Medical] - 03/01/25 Stefanie Sawyer APRN [Advanced Registered [employer], Behavioral Health] - 2 weeks Prescriptions/Medication Reconciliation: New potassium chloride [Klor-Con M20] 20 mEq Tablet,Er Particles/Crystals 40 meq PO DAILY 30 Days Qty: 60 0RF lorazepam 0.5 mg Tablet 0.5 mg PO BIDP PRN (Reason: anxiety) 3 Days Qty: 6 0RF Phospha 250 Neutral 250 mg Tablet 2 tab PO BID 7 Days Qty: 28 0RF propranolol 20 mg Tablet 40 mg PO DAILY 30 Days Qty: 60 0RF cholecalciferol (vitamin D3) 25 mcg (1,000 unit) Tablet 25 mcg PO DAILY 30 Days Qty: 30 0RF Continued trazodone 100 mg tablet 100 mg PO HS Qty: 90 1RF atorvastatin 20 mg tablet 20 mg PO HS Discontinued propranolol 20 mg tablet 40 mg PO TID Qty: 180 1RF Problem Reconciliation Problems Reviewed?: Yes Patient Discharge Instructions ACTIVITY: Continue current activity DIET: continue same diet Patient Instructions: Acute Kidney Injury, DI for Hypokalemia, DI for Hyponatremia Print Language: Sammarinese Providers Primary Care Provider: Provider,Referral Admit Provider: Mehrdad Herrera Attending Provider: Mehrdad Herrera
[2025-02-26] MEDS: CHOLECALCIFEROL 1,000 UNITS (25MCG) TABLET 25 MCG PO (19:00)
[2025-02-26] MEDS: TRAZODONE 50MG TABLET 100 MG PO (20:53)
[2025-02-26] MEDS: ATORVASTATIN 20MG TABLET 20 MG PO (20:54)
[2025-02-27] VITALS: BP 112/63; PULSE 57; PULSE 90; RESP 16; TEMP 37.1; O2SAT 97
[2025-02-27] MEDS: PIPERACILLIN/TAZO 3.375 GM in 0.9 % SODIUM CHLORIDE 50 ML IV ×2 (01:44→06:55)
[2025-02-27 04:00] VITALS: BP 117/67; PULSE 50; PULSE 58; RESP 16; TEMP 37; O2SAT 97; BMI 20.2
[2025-02-27 07:21] VITALS: BP 146/75; PULSE 77; RESP 18; O2SAT 98
[2025-02-27 08:00] VITALS: PULSE 60
[2025-02-27] MEDS: K-PHOS NEUTRAL 250MG TABLET 500 MG PO (08:17)
[2025-02-27] MEDS: PROPRANOLOL 20MG TAB 40 MG PO (08:17)
[2025-02-27] MEDS: CHOLECALCIFEROL 1,000 UNITS (25MCG) TABLET 25 MCG PO (08:17)
[2025-02-27] MEDS: FOLIC ACID 1MG TABLET 1 MG PO (08:17)
[2025-02-27] MEDS: PANTOPRAZOLE 40MG TABLET 40 MG PO (08:20)
[2025-02-27 08:51] LABS: Hematocrit 36.7 % (42.0-52.0); Immature Granulocytes % 0.5 %; Mean Corpuscular HGB Conc 35.4 g/dL (31.8-35.4); Mean Corpuscular Hemoglobin 32.9 pg (27.0-31.2); Mean Corpuscular Volume 92.9 fl (80-94); Nucleated Red Blood Cells % 0 %; Platelet Count 92 K/mm3 (142-424); Red Blood Count 3.95 M/mm3 (4.60-6.20); Red Cell Distribution Width-SD 42.9 fL; White Blood Count 8.0 K/mm3 (4.8-10.8)
[2025-02-27 08:59] LABS: Albumin Level 3.8 g/dl (3.5-5.0); Chloride 100 mmol/L (98-107)
[2025-02-27 09:00] LABS: Potassium 3.2 mmoL/L (3.5-5.1); Sodium 138 mmol/L (136-145)
[2025-02-27 09:02] LABS: Alanine Aminotransferase 58 U/L (12-78); Aspartate Amino Transferase 78 U/L (17-59); Blood Urea Nitrogen 16 mg/dl (9-20); Creatinine Clearance Estimated 75 mL/min (50-200); Creatinine,Serum 1.10 mg/dl (0.66-1.25); Estimated Glomerular Filt Rate 69 ml/min (>60); GFR (African American) 83 ML/MIN (>60)
[2025-02-27 09:03] LABS: Albumin/Globulin Ratio 1.4 (1.1-1.8); Alkaline Phosphatase 72 U/L (38-126); Anion Gap 11.2 mEq/L (5-15); Bilirubin,Total 1.5 mg/dl (0.2-1.3); Calcium 7.9 mg/dl (8.4-10.2); Carbon Dioxide 30 mmol/L (22.0-30.0); Globulin 2.7 g/dL (1.3-3.2); Glucose 101 mg/dl (74-100); Magnesium 1.8 mg/dl (1.6-2.3); Total Protein,Serum 6.5 g/dl (6.3-8.2)
[2025-02-27 09:42] LABS: Hemoglobin 13.0 g/dL (14.1-18.0)
[2025-02-27] MEDS: POTASSIUM CHLORIDE 20MEQ TAB 60 MEQ PO (11:01)
--- NOTE | 2025-03-01 10:17 | SW/DCPLANNER ---
Phoned patient x2. The number that we have has been disconnected or no longer in service. Renetta Vilchis
== END 2025-02-27 11:16 | disposition home or self-care (01) ==
LOC: ER 05:26 → 2ND 05:29
PROVIDERS: Nurse Practitioner Acute Care; Student in an Organized Health Care Education/Training Program; Admitting Provider Internal Medicine; Emergency Provider Emergency Medicine; Visit Provider Internal Medicine
DX: N17.9 Acute kidney failure, unspecified (principal); E86.0 Dehydration; E87.1 Hypo-osmolality and hyponatremia; E78.5 Hyperlipidemia, unspecified; D72.829 Elevated white blood cell count, unspecified; E83.39 Other disorders of phosphorus metabolism; E87.6 Hypokalemia; I10 Essential (primary) hypertension; R64 Cachexia; I67.2 Cerebral atherosclerosis; Z90.49 Acquired absence of other specified parts of digestive tract; Z79.899 Other long term (current) drug therapy; Z68.20 Body mass index [BMI] 20.0-20.9, adult
CPT/HCPCS: 36415; 70450; 70496; 70498; 71045; 74177; 80048; 80053; 80307; 80320; 81001; 82306; 82803; 83036; 83605; 83690; 83735; 83880; 84100; 84145; 84436; 84443; 85007; 85025; 85027; 86140; 87040; 93005; 96361; 96365; 96366; 96367; 96375; 96376; 99285; G0378; J2405; J2470; J2543; J2550; J3411; J3475; J3480; J7030; Q9967